=== PATIENT | female | born 1940 | race Caucasian/White ===

== ENCOUNTER 2022-07-23 15:09 | Emergency (ER) | payer MEDICARE ==
[2022-07-23] MEDS ORDERED: TORAdol 30 mg Injection IM ONE (15:24)
[2022-07-23] MEDS ORDERED: TORAdol 30 mg Injection ONE (15:30)
[2022-07-23 15:31] VITALS: O2SAT 98
--- NOTE | 2022-07-23 15:36 | ERPHSYRPT ---
- History of Present Illness Time Seen by Provider: 07/23/22 15:32 Source: patient, family Exam Limitations: no limitations Patient Subjective Stated Complaint: Pt went to answer the door and when she stood up her right leg gave out and she fell and injured her left pelvis, left shoulder, and cut her left eye on the lateral side Triage Nursing Assessment: Pt brought to the ER by her son, magy wnl, rates pain as 10/10, no bruising noted to left shoulder or pelvis, tender to touch, bruising to left eye with mild bleeding to the lateral side, bounding pulses, skin n/w/d, son states that after she fell he picked her up and she passed out in her arms, pt appears to be in extreme pain Physician History: Pt went to answer the door and when she stood up her right leg gave out and she fell and injured her left pelvis, left shoulder, and cut her left eye on the lateral side son states that after she fell he picked her up and she passed out in her arms, pt appears to be in extreme pain Occurred: just prior to arrival Reason for Fall: tripped, fell from standing pos Injuries/Pain Location: face (tiny laceration at outer angle of left eye), upper extremity, pelvis, lower extremity Loss of Consciousness: brief (seconds) Quality: throbbing Severity of Pain-Max: moderate Severity of Pain-Current: moderate Modifying Factors: Improves With: nothing Associated Symptoms (Fall): denies symptoms Allergies/Adverse Reactions: codeine Allergy (Verified 07/23/22 15:32) propoxyphene [From Darvon] Allergy (Verified 07/23/22 15:32) Home Medications: Alendronate Sodium [Fosamax] 70 mg PO WEEKLY 07/23/22 [History] Amlodipine Besylate 5 mg [Norvasc 5 mg] 5 mg PO DAILY 07/23/22 [History] Donepezil HCl 10 mg [Aricept 10 MG] 10 mg PO HS 07/23/22 [History] Meloxicam 15 mg [Meloxicam 15 MG] 15 mg PO DAILY 07/23/22 [History] Simvastatin 40 mg PO DAILY 07/23/22 [History] hydroCHLOROthiazide [Hydrochlorothiazide] 12.5 mg PO DAILY 07/23/22 [History] Hx Influenza Vaccination/Date Given: Yes (2021) Hx Pneumococcal Vaccination/Date Given: Yes (2019) Travel Risk - International Travel Have you traveled outside of the country in past 3 weeks: No - Coronavirus Screening Are you exhibiting any of the following symptoms?: No Close contact with a COVID-19 positive Pt in past 14-21 Days: No - Vaccine Status Have you recieved a Covid-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: Yes [employer]: [employer] - Vaccination Dates Date of 2cond Vaccination (if applicable): 2020 - Review of Systems Constitutional: No Fever, No Chills Eyes: No Symptoms Ears, Nose, & Throat: No Symptoms Respiratory: No Cough, No Dyspnea Cardiac: No Chest Pain, No Edema, No Syncope Abdominal/Gastrointestinal: No Abdominal Pain, No Nausea, No Vomiting, No Diarrhea Genitourinary Symptoms: No Dysuria Musculoskeletal: Deformity (left shoulder), Fall, Injury, Joint Pain, Joint Swelling, No Back Pain, No Neck Pain, No Joint Redness Skin: No Rash Neurological: No Dizziness, No Focal Weakness, No Sensory Changes Psychological: No Symptoms Endocrine: No Symptoms All Other Systems: Reviewed and Negative - Past Medical History Pertinent Past Medical History: Yes Neurological History: No Pertinent History Cardiac History: High Cholesterol, Hypertension Respiratory History: No Pertinent History Endocrine Medical History: Diabetes Type II Musculoskeletal History: Arthritis Other Medical History: L foot fx 2020. R wrist fx 2020 - Past Surgical History Past Surgical History: Yes Gastrointestinal: Appendectomy Musculoskeletal: Orthopedic Surgery Female Surgical History: Hysterectomy Other Surgical History: back, rt wrist - Social History Smoking Status: Never smoker Exposure to second hand smoke: No Drug Use: none Patient Lives Alone: No - Nursing Vital Signs Nursing Vital Signs: Initial Vital Signs Temperature 97.1 F 07/23/22 15:17 Pulse Rate 56 L 07/23/22 15:17 Respiratory Rate 19 07/23/22 15:17 Blood Pressure 120/68 07/23/22 15:17 O2 Sat by Pulse Oximetry 98 07/23/22 15:17 Pain Scale Pain Intensity 5 - Daniela Coma Score Best Eye Response (Daniela): (4) open spontaneously Best Verbal Response (Daniela): (5) oriented Best Motor Response (Daniela): (6) obeys commands Daniela Total: 15 - Physical Exam General Appearance: no apparent distress, alert Head Injury: no evidence of injury Eye Exam: PERRL/EOMI, other (superficial laceration at outer angle of left eye) ENT Exam: airway nml Neck Exam: normal inspection, No tenderness Respiratory/Chest Exam: normal breath sounds, No chest tenderness, No respiratory distress Cardiovascular Exam: normal heart sounds, regular rate/rhythm Gastrointestinal Exam: soft, No tenderness, No distention, No guarding, No ecchymosis Back Exam: normal inspection, No vertebral tenderness Extremity Exam: normal inspection, normal range of motion, pelvis stable, No deformities Neurologic Exam: alert, oriented x 3, cooperative, sensation nml, No motor deficits Skin Exam: normal color, warm, dry SpO2: 98 Procedures - Joint Reduction Time of Procedure: 16:10 Joint Reduction Site: Left, shoulder Conscious Sedation: No Pre-Procedure Neurovascular Exam: neurovascular intact Post Procedure Neurovascular Exam: neurovascular intact Post Joint Reduction Film: joint not reduced (completely) Progress: attempted twice without any success. Splint applied. Outpatient follow up with ortho clinic in AM - Laceration/Wound Repair Left Cheek Time of Procedure: 15:35 Wound Location: Left, face Wound Length (cm): 2 Wound Explored: clean Irrigated: Yes Hibiclens Prep: Yes Wound Repaired With: Steri-strips - Course Nursing assessment & vital signs reviewed: Yes - Radiology Exams Shoulder X-ray Interpretation: Reviewed by me, Subluxation Pelvis X-ray Interpretation: Reviewed by me, Discussed w/ radiologist (left pubic bone nondisplaced fracture) Ordered Tests: Active Orders 24 hr Category Date Time Status HIPS CHARANJIT(2V) INCL PEL IF DONE Stat Exams 07/23/22 16:00 Completed SHOULDER Routine Exams 07/23/22 16:36 Completed SHOULDER Routine Exams 07/23/22 17:15 Taken SHOULDER Stat Exams 07/23/22 15:25 Completed Medication Summary Generic Name Dose Route Start Last Admin Trade Name Freq PRN Reason Stop Dose Admin Diphtheria/Tetanus/Acell Pertussis 0.5 ml 07/23/22 18:12 Tdap --Diph,Pertuss(Acell),Tet Vac/Pf 0.5 Ml Vial IM 07/23/22 18:13 .ONCE ONE Discontinued Medications Generic Name Dose Route Start Last Admin Trade Name Freq PRN Reason Stop Dose Admin Ketorolac Tromethamine 60 mg 07/23/22 15:24 07/23/22 15:32 Ketorolac Tromethamine 30 Mg/Ml Inj IM 07/23/22 15:25 60 mg STAT ONE Administration Ketorolac Tromethamine Confirm 07/23/22 15:30 Ketorolac Tromethamine 30 Mg/Ml Inj Administered 07/23/22 15:31 Dose 60 mg .ROUTE .STK-MED ONE Lorazepam 2 mg 07/23/22 16:23 07/23/22 16:31 Lorazepam 2 Mg/1 Ml 2 Mg Vial IM 07/23/22 16:24 2 mg STAT ONE Administration Lorazepam Confirm 07/23/22 16:30 Lorazepam 2 Mg/1 Ml 2 Mg Vial Administered 07/23/22 16:31 Dose 2 mg .ROUTE .STK-MED ONE Orphenadrine Citrate 60 mg 07/23/22 17:20 07/23/22 17:35 Orphenadrine Citrate 60 Mg/2 Ml Vial IM 07/23/22 17:21 60 mg STAT ONE Administration Orphenadrine Citrate Confirm 07/23/22 17:29 Orphenadrine Citrate 60 Mg/2 Ml Vial Administered 07/23/22 17:30 Dose 60 mg .ROUTE .STK-MED ONE - Progress Progress: improved, pain not gone completely Counseled pt/family regarding: diagnosis, need for follow-up, rad results - Departure Departure Disposition: Home Clinical Impression: Hip pain, left Anterior shoulder dislocation Qualifiers: Encounter type: initial encounter Laterality: left Qualified Code(s): S43.015A - Anterior dislocation of left humerus, initial encounter Pubic ramus fracture Qualifiers: Encounter type: initial encounter Fracture type: closed Laterality: left Qualified Code(s): S32.592A - Other specified fracture of left pubis, initial encounter for closed fracture Condition: Stable Critical Care Time: No Referrals: DOCTOR,NO FAMILY [NON-STAFF PHY W/O PRIVILEGES] - [facility]-Ortho M-F [id number] Instructions: Pelvic Fracture, Shoulder Dislocation (DC), Preventing Falls in Older Adults, Shoulder Instability (DC), Shoulder Pain (DC) Additional Instructions: We are unable to reduce your shoulder completely. Because of pain we are going to put you in a sling and advised you to follow-up with Ortho clinic which is our walk-in clinic tomorrow morning in between 8 AM to 10 AM. Meanwhile keep the sling on. You also have a small left side pubic bone fracture which is nondisplaced. You also have a severe osteoporosis so you are at very high fracture risk. Continue all your medication including vitamin D and calcium. Follow-up as an outpatient at Ortho clinic for your shoulder issue as well as pelvic fracture issue and consider outpatient physical therapy after discussing with them. Discharge/Care Plan CLAY JAMES was seen on 07/23/22 in the Emergency Room. The patient was counseled regarding Diagnosis,Lab results, Imaging studies, need for follow up and when to return to the Emergency Room. Prescriptions given: Discharge Note I have spoken with the patient and/or caregivers. I have explained the patient's condition, diagnosis and treatment plan based on the information available to me at this time. I have answered the patient's and/or caregiver's questions and addressed any concerns. The patient and/or caregivers have as good understanding of the patient's diagnosis, condition and treatment plan as can be expected at this point. The vital signs have been stable. The patient's condition is stable and appropriate for discharge from the emergency department. The patient will pursue further outpatient evaluation with the primary care physician or other designated or consulting physician as outlined in the discharge instructions. The patient and/or caregivers are agreeable to this plan of care and follow-up instructions have been explained in detail. The patient and/or caregivers have received these instruction. The patient/and or caregivers are aware that any significant change in condition or worsening of symptoms should prompt an immediate return to this or the closest emergency department or call 911. Prescriptions: Hydrocodone/Acetaminophen [Hydrocodone-Acetamin 5-325 mg] 1 tab PO Q6HPRN PRN #10 tablet MDD 4 PRN Reason: Pain
[2022-07-23] MEDS ORDERED: Ativan 2 MG/1 ML VIAL IM ONE (16:23)
[2022-07-23] MEDS ORDERED: Ativan 2 MG/1 ML VIAL ONE (16:30)
[2022-07-23] MEDS ORDERED: Norflex 60 MG/2 ML IM ONE (17:20)
[2022-07-23] MEDS ORDERED: Norflex 60 MG/2 ML ONE (17:29)
--- NOTE | 2022-07-23 18:10 | XRAY ---
Indication: Pain following fall. Comparison: None AP pelvis and 2 view left and right hip demonstrates nondisplaced left superior/inferior pubic ramus acute fractures. Elsewhere osteopenia, lower lumbar degenerative changes, partially visualized lower lumbar fusion hardware, and numerous pelvic phleboliths. Comment: Fracture not reported by interpreting ER clinician. Telephone report was given Dr. Schwab at 1805 hrs. on July 23, 2022.
[2022-07-23] MEDS ORDERED: Adacel Vial IM ONE ×2 (18:12→18:16)
--- NOTE | 2022-07-23 18:12 | XRAY ---
Indication: Pain following fall. Comparison: None 3 view left shoulder demonstrates anterior inferior humeral head dislocation, osteopenia, mild acromioclavicular degenerative changes, and multilevel cervical degenerative changes. No other bony, articular, or soft tissue abnormalities.
--- NOTE | 2022-07-23 18:12 | XRAY ---
Indication: Post reduction. Comparison: Taken earlier in the day. Single AP left shoulder unchanged again demonstrating anterior inferior humeral head dislocation, osteopenia, and degenerative changes.
--- NOTE | 2022-07-23 18:14 | XRAY ---
Indication: Postreduction attempt #2. Comparison: Taken earlier in day. Single AP left shoulder again demonstrates unsuccessful reduction. Continued anterior inferior humeral head dislocation, osteopenia, and degenerative changes.
[2022-07-23 18:34] VITALS: BP 140/98; PULSE 78
== END 2022-07-23 18:36 | disposition home or self-care (01) ==
LOC: ED 15:09
DX: S43.015A Anterior dislocation of left humerus, initial encounter (principal); S32.592A Other specified fracture of left pubis, initial encounter for closed fracture; M25.552 Pain in left hip; S01.112A Laceration without foreign body of left eyelid and periocular area, initial encounter; W18.39XA Other fall on same level, initial encounter; M25.512 Pain in left shoulder; E78.5 Hyperlipidemia, unspecified; I10 Essential (primary) hypertension; E11.9 Type 2 diabetes mellitus without complications; Z79.899 Other long term (current) drug therapy; Z79.891 Long term (current) use of opiate analgesic
CPT/HCPCS: 12011; 23650; 73030; 73521; 90471; 90715; 96372; 99284; J1885; J2060; J2360

== ENCOUNTER 2023-02-26 08:41 | Emergency (ER) | payer MEDICARE ==
[2023-02-26] MEDS ORDERED: Zofran 4 MG/2 ML VIAL IV ONE (08:55)
[2023-02-26] MEDS ORDERED: Sodium Chloride 0.9% 1000 ML 1,000 ML IV STA (08:55)
[2023-02-26] MEDS ORDERED: BABY ASPIRIN 81 MG CHEW PO ONE (08:55)
[2023-02-26] MEDS ORDERED: SUBLIMAZE 100 MCG/2 ML IV ONE (08:59)
[2023-02-26] MEDS ORDERED: BABY ASPIRIN 81 MG CHEW ONE (09:02)
[2023-02-26] MEDS ORDERED: Zofran 4 MG/2 ML VIAL ONE (09:04)
[2023-02-26] MEDS ORDERED: SUBLIMAZE 100 MCG/2 ML ONE (09:04)
[2023-02-26] MEDS ORDERED: Sodium Chloride 0.9% 1000 ML 1,000 ML ONE (09:04)
[2023-02-26 09:14] LABS: Absolute Neutrophil Ct (ANC) 3.69 x10^3/uL (1.4-6.9); BASOPHIL % 0.5 % (0.0-0.4); Basophil (Absolute #) 0.03 x10^3/uL (0-0.4); Eosinophil % 2.2 % (0.00-5.0); Eosinophil (Absolute #) 0.13 x10^3/uL (0-0.5); Hemoglobin 13.5 g/dL (12.0-16.0); IMMATURE GRAN # 0.03 x10^3u/L (0.00-0.03); IMMATURE GRAN % 0.5 % (0.00-0.4); Lymphocyte (Absolute #) 1.67 x10^3/uL (1.0-4.6); Lymphocytes % 27.8 % (24.0-44.0); Mean Cell Volume 92.9 fL (78-100); Mean Corpuscular Hemoglobin 29.2 pg (26-32); Mean Corpuscular Hgb Concent. 31.4 g/dL (32-36); Mean Platelet Volume 10.9 fL (7.5-11.0); Monocyte (Absolute #) 0.46 x10^3/uL (0.0-1.3); Monocytes % 7.7 % (0.0-12.0); Neutrophil % 61.3 % (36.0-66.0); Platelet Count 226 x10^3/uL (150-450); Red Blood Count 4.63 x10^6/uL (4.1-5.4); Red Cell Distribution Width 14.2 % (11.5-14.0)
[2023-02-26 09:29] LABS: ALBUMIN 4.3 g/dL (3.5-5.0); ANION GAP 15.9 MEQ/L (5-15); BILIRUBIN,TOTAL 0.6 mg/dL (0.2-1.3); Creatinine 1 0.96 mg/dL (0.52-1.04); EST GLOMERULAR FILTRATION RATE 59.4 ML/MIN; Potassium 4.1 mmol/L (3.5-5.1); Total Protein 7.5 g/dL (6.3-8.2)
[2023-02-26 09:38] LABS: INR 0.93 (0.8-3.0); PROTIME 10.2 SECONDS (9.4-12.5); PTT 25.9 SECONDS (25.1-36.5)
[2023-02-26 09:40] LABS: D-DIMER QUANTITATIVE 0.67 mg/L (0.0-0.50)
--- NOTE | 2023-02-26 10:25 | ERPHSYRPT ---
- History of Present Illness Time Seen by Provider: 02/26/23 08:50 Historian: patient Exam Limitations: no limitations Patient Subjective Stated Complaint: C/O CHEST PAIN THAT STARTED AROUND 0700 THIS AM WHILE IN THE SHOWER. STATES PAIN RADIATED THROUGH TO BACK, INBETWEEN HER SHOULDER BLADES. HURTS TO DEEP BREATH. Triage Nursing Assessment: Patient brought back to ER in W/C. She is alert and oriented; anxious. SOB noted; patient states it hurts to deep breath. Patient displaying s/s of pain when attempting to take a deep breath. She is garcía; face is flushed. Skin in not hot to touch. Trace edema to BLE. No cough present. Physician History: Patient is an 82-year-old white female who presents with a complaint of chest pain which radiates through to the back into the interscapular area this started at 7 AM this morning it is worse with a deep breath and certain movements. She has been short of breath the pain is worse with movement or deep breath but is continuous. She was taking a shower when the pain started. Timing/Duration: today Activities at Onset: other (Taking a shower.) Quality: stabbing Location: substernal Chest Pain Radiation: back Severity of Pain-Max: severe Severity of Pain-Current: severe Modifying Factors: Improves With: breathing, coughing, movement Associated Symptoms: shortness of breath, hurts to breathe, back pain Prior Chest Pain/Cardiac Workup: no prior chest pain Nitro Today/Relief: no nitro taken today Aspirin Treatment Today: no aspirin today Allergies/Adverse Reactions: codeine Allergy (Verified 02/26/23 08:46) propoxyphene [From Darvon] Allergy (Verified 02/26/23 08:46) Home Medications: Alendronate Sodium [Fosamax] 70 mg PO WEEKLY 07/23/22 [History] Amlodipine Besylate 5 mg [Norvasc 5 mg] 5 mg PO DAILY 07/23/22 [History] Donepezil HCl 10 mg [Aricept 10 MG] 10 mg PO HS 07/23/22 [History] Meloxicam 15 mg [Meloxicam 15 MG] 15 mg PO DAILY 07/23/22 [History] Simvastatin 40 mg PO DAILY 07/23/22 [History] hydroCHLOROthiazide [Hydrochlorothiazide] 12.5 mg PO DAILY 07/23/22 [History] Glimepiride 4 mg [Amaryl 4 mg] 4 mg PO DAILY 02/26/23 [History] Hx Tetanus, Diphtheria Vaccination/Date Given: Yes Hx Influenza Vaccination/Date Given: Yes (2021) Hx Pneumococcal Vaccination/Date Given: Yes (2019) Immunizations Up to Date: Yes Travel Risk - International Travel Have you traveled outside of the country in past 3 weeks: No - Coronavirus Screening Are you exhibiting any of the following symptoms?: Yes Symptoms: Shortness of Breath Close contact with a COVID-19 positive Pt in past 14-21 Days: No - Vaccine Status Have you recieved a Covid-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: 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[employer] - Vaccination Dates Date of 2cond Vaccination (if applicable): 2020 - Review of Systems Constitutional: No Fever, No Chills Eyes: No Symptoms Ears, Nose, & Throat: No Symptoms Respiratory: Dyspnea, Dyspnea on Exertion (BUCK), No Cough Cardiac: Chest Pain, No Edema, No Syncope Abdominal/Gastrointestinal: No Symptoms, No Abdominal Pain, No Nausea, No Vomiting, No Diarrhea Genitourinary Symptoms: No Symptoms, No Dysuria Musculoskeletal: No Symptoms, No Back Pain, No Neck Pain Skin: No Rash Neurological: No Symptoms, No Dizziness, No Focal Weakness, No Sensory Changes Psychological: No Symptoms Endocrine: No Symptoms All Other Systems: Reviewed and Negative - Past Medical History Pertinent Past Medical History: Yes Neurological History: No Pertinent History Cardiac History: High Cholesterol, Hypertension Respiratory History: No Pertinent History Endocrine Medical History: Diabetes Type II Musculoskeletal History: Osteoarthritis 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 - Past Surgical History Past Surgical History: Yes Gastrointestinal: Appendectomy Musculoskeletal: Orthopedic Surgery Female Surgical History: Hysterectomy Other Surgical History: back, rt wrist - Social History Smoking Status: Never smoker Exposure to second hand smoke: No Drug Use: none Patient Lives Alone: No - Nursing Vital Signs Nursing Vital Signs: Initial Vital Signs Pulse Rate 63 02/26/23 08:45 Respiratory Rate 12 02/26/23 08:45 Blood Pressure 143/74 02/26/23 08:45 O2 Sat by Pulse Oximetry 99 02/26/23 08:45 Pain Scale Pain Intensity 0 - Physical Exam General Appearance: moderate distress, alert Eye Exam: PERRL/EOMI, eyes nml inspection Ears, Nose, Throat Exam: normal ENT inspection, moist mucous membranes Neck Exam: normal inspection, non-tender, supple, full range of motion Respiratory Exam: normal breath sounds, lungs clear, No respiratory distress Cardiovascular Exam: regular rate/rhythm, normal heart sounds Gastrointestinal/Abdomen Exam: soft, No tenderness, No mass Back Exam: normal inspection, No CVA tenderness, No vertebral tenderness Extremity Exam: normal inspection, normal range of motion Neurologic Exam: alert, oriented x 3, cooperative, normal mood/affect, sensation nml, No motor deficits Skin Exam: normal color, warm, dry SpO2: 98 - Course Nursing assessment & vital signs reviewed: Yes EKG Interpreted by Me: RATE (66), Sinus Rhythm, NORMAL AXIS, Right Bundle Branch Block, Non-specific ST Changes, Other (Low voltage in the precordial leads and occasional atrial premature complex.) - CT Exams Chest CT Interpretation: Tele-radiologist Report Ordered Tests: Active Orders 24 hr Category Date Time Status EKG-ER Only STAT Care 02/26/23 08:55 Active IV Insertion STAT Care 02/26/23 08:55 Active CHEST WITH CONTRAST [CT] Stat Exams 02/26/23 08:56 Completed CBC W DIFF Stat Lab 02/26/23 08:55 Completed CMP Stat Lab 02/26/23 08:58 Completed D-DIMER QUANTITATIVE Stat Lab 02/26/23 08:58 Completed NT PRO BNPII Stat Lab 02/26/23 08:58 Completed PROTIME WITH INR Stat Lab 02/26/23 08:58 Completed PTT Stat Lab 02/26/23 08:58 Completed TROPONIN Q4H Lab 02/26/23 08:58 Completed TROPONIN Q4H Lab 02/26/23 11:53 Completed TROPONIN Q4H Lab 02/26/23 17:00 Ordered UA W/RFX UR CULTURE Stat Lab 02/26/23 11:07 Completed Urine Triage Profile Stat Lab 02/26/23 11:07 Completed Medication Summary Discontinued Medications Generic Name Dose Route Start Last Admin Trade Name Freq PRN Reason Stop Dose Admin Aspirin 324 mg 02/26/23 08:55 02/26/23 09:03 Aspirin 81 Mg Tab.Chew PO 02/26/23 08:56 324 mg STAT ONE Administration Aspirin Confirm 02/26/23 09:02 Aspirin 81 Mg Tab.Chew Administered 02/26/23 09:03 Dose 324 mg .ROUTE .STK-MED ONE Fentanyl Citrate 100 mcg 02/26/23 08:59 02/26/23 09:05 Fentanyl Citrate 100 Mcg/2 Ml* Vial IV 02/26/23 09:00 100 mcg STAT ONE Administration Fentanyl Citrate Confirm 02/26/23 09:04 Fentanyl Citrate 100 Mcg/2 Ml* Vial Administered 02/26/23 09:05 Dose 100 mcg .ROUTE .STK-MED ONE Sodium Chloride 1,000 mls @ 999 mls/hr 02/26/23 08:55 02/26/23 10:15 Sodium Chloride 0.9% 1000 Ml IV 02/26/23 09:55 Infused .Q1H1M STA Infusion Sodium Chloride Confirm 02/26/23 09:04 Sodium Chloride 0.9% 1000 Ml Administered 02/26/23 09:05 Dose 1,000 mls @ ud .ROUTE .STK-MED ONE Ondansetron HCl 4 mg 02/26/23 08:55 02/26/23 09:05 Ondansetron Hcl 4 Mg/2 Ml Vial IV 02/26/23 08:56 4 mg STAT ONE Administration Ondansetron HCl Confirm 02/26/23 09:04 Ondansetron Hcl 4 Mg/2 Ml Vial Administered 02/26/23 09:05 Dose 4 mg .ROUTE .STK-MED ONE Lab/Rad Data: Laboratory Result Diagrams 02/26/23 08:55 02/26/23 08:58 Laboratory Results 02/26/23 02/26/23 02/26/23 Range/Units 11:53 11:07 11:07 WBC (4.0-10.5) x10^3/uL RBC (4.1-5.4) x10^6/uL Hgb (12.0-16.0) g/dL Hct (35-47) % MCV (78-100) fL MCH (26-32) pg MCHC (32-36) g/dL RDW (11.5-14.0) % Plt Count (150-450) x10^3/uL MPV (7.5-11.0) fL Gran % (36.0-66.0) % Immature Gran % (Auto) (0.00-0.4) % Nucleat RBC Rel Count (0.00-0.1) % Eos # (Auto) (0-0.5) x10^3/uL Immature Gran # (Auto) (0.00-0.03) x10^3u/L Absolute Lymphs (auto) (1.0-4.6) x10^3/uL Absolute Monos (auto) (0.0-1.3) x10^3/uL Absolute Nucleated RBC (0.00-0.01) x10^3u/L Lymphocytes % (24.0-44.0) % Monocytes % (0.0-12.0) % Eosinophils % (0.00-5.0) % Basophils % (0.0-0.4) % Absolute Granulocytes (1.4-6.9) x10^3/uL Basophils # (0-0.4) x10^3/uL PT (9.4-12.5) SECONDS INR (0.8-3.0) APTT (25.1-36.5) SECONDS D-Dimer (0.0-0.50) mg/L Sodium (137-145) mmol/L Potassium (3.5-5.1) mmol/L Chloride (98-107) mmol/L Carbon Dioxide (22-30) mmol/L Anion Gap (5-15) MEQ/L BUN (7-17) mg/dL Creatinine (0.52-1.04) mg/dL Estimated GFR ML/MIN Glucose (74-106) mg/dL Calcium (8.4-10.2) mg/dL Total Bilirubin (0.2-1.3) mg/dL AST (14-36) U/L ALT (0-35) U/L Alkaline Phosphatase (38-126) U/L Troponin I < 0.012 (0.000-0.034) ng/mL NT-Pro-B Natriuret Pep (<300) pg/mL Serum Total Protein (6.3-8.2) g/dL Albumin (3.5-5.0) g/dL Urine Color Yellow (Yellow) Urine Appearance Clear (Clear) Urine pH 7.5 (4.6-8.0) Ur Specific Aguilar 1.010 (1.005-1.030) Urine Protein Negative (Negative) Urine Glucose (UA) Negative (Negative) mg/dL Urine Ketones Negative (Negative) Urine Blood Negative (Negative) Urine Nitrite Negative (Negative) Urine Bilirubin Negative (Negative) Urine Urobilinogen 0.2 (0.2) mg/dL Ur Leukocyte Esterase Negative (Negative) U Hyaline Cast (Auto) NONE SEEN (0-2) /LPF Urine Microscopic RBC 0-2 (0-5) /HPF Urine Microscopic WBC 0-2 (0-5) /HPF Ur Epithelial Cells None Seen (None Seen) /HPF Urine Bacteria None Seen (None Seen) /HPF Urine Culture Reflexed NO (NO) Urine Opiates Level NEGATIVE (NEGATIVE) Ur Methadone NEGATIVE (NEGATIVE) Urine Barbiturates NEGATIVE (NEGATIVE) Ur Phencyclidine (PCP) NEGATIVE (NEGATIVE) Urine Amphetamine NEGATIVE (NEGATIVE) U Benzodiazepine Level NEGATIVE (NEGATIVE) Urine Cocaine NEGATIVE (NEGATIVE) Urine Marijuana (THC) NEGATIVE (NEGATIVE) 02/26/23 02/26/23 02/26/23 Range/Units 08:58 08:58 08:58 WBC (4.0-10.5) x10^3/uL RBC (4.1-5.4) x10^6/uL Hgb (12.0-16.0) g/dL Hct (35-47) % MCV (78-100) fL MCH (26-32) pg MCHC (32-36) g/dL RDW (11.5-14.0) % Plt Count (150-450) x10^3/uL MPV (7.5-11.0) fL Gran % (36.0-66.0) % Immature Gran % (Auto) (0.00-0.4) % Nucleat RBC Rel Count (0.00-0.1) % Eos # (Auto) (0-0.5) x10^3/uL Immature Gran # (Auto) (0.00-0.03) x10^3u/L Absolute Lymphs (auto) (1.0-4.6) x10^3/uL Absolute Monos (auto) (0.0-1.3) x10^3/uL Absolute Nucleated RBC (0.00-0.01) x10^3u/L Lymphocytes % (24.0-44.0) % Monocytes % (0.0-12.0) % Eosinophils % (0.00-5.0) % Basophils % (0.0-0.4) % Absolute Granulocytes (1.4-6.9) x10^3/uL Basophils # (0-0.4) x10^3/uL PT 10.2 (9.4-12.5) SECONDS INR 0.93 (0.8-3.0) APTT 25.9 (25.1-36.5) SECONDS D-Dimer 0.67 H* (0.0-0.50) mg/L Sodium (137-145) mmol/L Potassium (3.5-5.1) mmol/L Chloride (98-107) mmol/L Carbon Dioxide (22-30) mmol/L Anion Gap (5-15) MEQ/L BUN (7-17) mg/dL Creatinine (0.52-1.04) mg/dL Estimated GFR ML/MIN Glucose (74-106) mg/dL Calcium (8.4-10.2) mg/dL Total Bilirubin (0.2-1.3) mg/dL AST (14-36) U/L ALT (0-35) U/L Alkaline Phosphatase (38-126) U/L Troponin I < 0.012 (0.000-0.034) ng/mL NT-Pro-B Natriuret Pep 635 (<300) pg/mL Serum Total Protein (6.3-8.2) g/dL Albumin (3.5-5.0) g/dL Urine Color (Yellow) Urine Appearance (Clear) Urine pH (4.6-8.0) Ur Specific Aguilar (1.005-1.030) Urine Protein (Negative) Urine Glucose (UA) (Negative) mg/dL Urine Ketones (Negative) Urine Blood (Negative) Urine Nitrite (Negative) Urine Bilirubin (Negative) Urine Urobilinogen (0.2) mg/dL Ur Leukocyte Esterase (Negative) U Hyaline Cast (Auto) (0-2) /LPF Urine Microscopic RBC (0-5) /HPF Urine Microscopic WBC (0-5) /HPF Ur Epithelial Cells (None Seen) /HPF Urine Bacteria (None Seen) /HPF Urine Culture Reflexed (NO) Urine Opiates Level (NEGATIVE) Ur Methadone (NEGATIVE) Urine Barbiturates (NEGATIVE) Ur Phencyclidine (PCP) (NEGATIVE) Urine Amphetamine (NEGATIVE) U Benzodiazepine Level (NEGATIVE) Urine Cocaine (NEGATIVE) Urine Marijuana (THC) (NEGATIVE) 06/19/23 06/19/23 Range/Units 08:58 08:55 WBC 6.0 (4.0-10.5) x10^3/uL RBC 4.63 (4.1-5.4) x10^6/uL Hgb 13.5 (12.0-16.0) g/dL Hct 43.0 (35-47) % MCV 92.9 (78-100) fL MCH 29.2 (26-32) pg MCHC 31.4 L (32-36) g/dL RDW 14.2 H (11.5-14.0) % Plt Count 226 (150-450) x10^3/uL MPV 10.9 (7.5-11.0) fL Gran % 61.3 (36.0-66.0) % Immature Gran % (Auto) 0.5 H (0.00-0.4) % Nucleat RBC Rel Count 0.0 (0.00-0.1) % Eos # (Auto) 0.13 (0-0.5) x10^3/uL Immature Gran # (Auto) 0.03 (0.00-0.03) x10^3u/L Absolute Lymphs (auto) 1.67 (1.0-4.6) x10^3/uL Absolute Monos (auto) 0.46 (0.0-1.3) x10^3/uL Absolute Nucleated RBC 0.00 (0.00-0.01) x10^3u/L Lymphocytes % 27.8 (24.0-44.0) % Monocytes % 7.7 (0.0-12.0) % Eosinophils % 2.2 (0.00-5.0) % Basophils % 0.5 (0.0-0.4) % Absolute Granulocytes 3.69 (1.4-6.9) x10^3/uL Basophils # 0.03 (0-0.4) x10^3/uL PT (9.4-12.5) SECONDS INR (0.8-3.0) APTT (25.1-36.5) SECONDS D-Dimer (0.0-0.50) mg/L Sodium 138 (137-145) mmol/L Potassium 4.1 (3.5-5.1) mmol/L Chloride 98 (98-107) mmol/L Carbon Dioxide 28 (22-30) mmol/L Anion Gap 15.9 H (5-15) MEQ/L BUN 25 H (7-17) mg/dL Creatinine 0.96 (0.52-1.04) mg/dL Estimated GFR 59.4 ML/MIN Glucose 224 H (74-106) mg/dL Calcium 9.0 (8.4-10.2) mg/dL Total Bilirubin 0.60 (0.2-1.3) mg/dL AST 30 (14-36) U/L ALT 30 (0-35) U/L Alkaline Phosphatase 111 (38-126) U/L Troponin I (0.000-0.034) ng/mL NT-Pro-B Natriuret Pep (<300) pg/mL Serum Total Protein 7.5 (6.3-8.2) g/dL Albumin 4.3 (3.5-5.0) g/dL Urine Color (Yellow) Urine Appearance (Clear) Urine pH (4.6-8.0) Ur Specific [place] (1.005-1.030) Urine Protein (Negative) Urine Glucose (UA) (Negative) mg/dL Urine Ketones (Negative) Urine Blood (Negative) Urine Nitrite (Negative) Urine Bilirubin (Negative) Urine Urobilinogen (0.2) mg/dL Ur Leukocyte Esterase (Negative) U Hyaline Cast (Auto) (0-2) /LPF Urine Microscopic RBC (0-5) /HPF Urine Microscopic WBC (0-5) /HPF Ur Epithelial Cells (None Seen) /HPF Urine Bacteria (None Seen) /HPF Urine Culture Reflexed (NO) Urine Opiates Level (NEGATIVE) Ur Methadone (NEGATIVE) Urine Barbiturates (NEGATIVE) Ur Phencyclidine (PCP) (NEGATIVE) Urine Amphetamine (NEGATIVE) U Benzodiazepine Level (NEGATIVE) Urine Cocaine (NEGATIVE) Urine Marijuana (THC) (NEGATIVE) - Progress Progress: improved Air Movement: good Blood Culture(s) Obtained: No Antibiotics given: No Counseled pt/family regarding: lab results, diagnosis, rad results Medical Desision Making - Independent Historian Additional History obtained from: Spouse - Diagnostic Testing Diagnostic test were ordered, analyzed, and reviewed by me: Yes Radiological Interpretation: Reviewed by me - Risk of complications The pt has a mod risk of morbidity or mortality based on: Need for prescription drug management - Departure Departure Disposition: Home Clinical Impression: Thoracic back pain Condition: Stable Critical Care Time: No Referrals: LAW MCKEON MD [Primary Care Provider] - Follow up/PCP as directed Instructions: Upper Back Pain ED, Upper Back Pain (DC) Prescriptions: Oxycodone HCl/Acetaminophen [Percocet 5-325 mg Tablet] 1 each PO Q6H 3 Days #12 tablet MDD 4 Diclofenac Sodium 50 mg [Voltaren 50 mg] 50 mg PO TID 5 Days #15 tablet MDD 3
--- NOTE | 2023-02-26 11:01 | XRAY ---
Indication: Chest pain. Elevated d-dimer. Multiple contiguous axial images obtained through the chest using 80 cc Isovue 370 contrast and PE protocol. Comparison: None Good opacification of the pulmonary arteries to include the lobar and segmental branches. No pulmonary embolus. Heart not enlarged. Aorta mildly arteriosclerotic without aneurysm/dissection. A few tiny left superhilar calcified nodes. No pathologic mediastinal/hilar lymphadenopathy. Small hiatal hernia. Lungs demonstrates bilateral dependent atelectasis greatest near the lung bases. No suspicious pulmonary mass/nodule, infiltrate, effusion, or pneumothorax. Bony thorax intact with osteopenia, mild degenerative changes throughout the spine, small superior L1 Schmorl node, and incompletely visualized lumbar fusion hardware. Limited upper abdomen demonstrates 1.4 cm left upper pole exophytic renal cyst, and tiny splenic calcified granulomas. Impression: 1. Negative pulmonary embolus. No acute cardiopulmonary abnormalities. 2. Incidental subsegmental atelectasis, small hiatal hernia, arteriosclerotic disease, chronic bony findings, left renal cyst, and old granulomatous disease.
[2023-02-26 11:30] LABS: Appearance Clear (Clear); Bacteria None Seen /HPF (None Seen); Bilirubin Negative (Negative); Blood Negative (Negative); Epithelial Cells None Seen /HPF (None Seen); Glucose, Urine Negative (Negative); Hyaline Casts NONE SEEN /LPF (0-2); Ketones Negative (Negative); Leukocyte Esterase Negative (Negative); Nitrite Negative (Negative); Ph 7.5 (4.6-8.0); Protein,Urine Dip Negative (Negative); RBC 0-2 /HPF (0-5); Urobilinogen 0.2 mg/dL (0.2); WBC 0-2 /HPF (0-5)
[2023-02-26 11:42] LABS: ADD URINE CULTURE? NO (NO)
[2023-02-26 11:44] LABS: Amphetamine,Urine NEGATIVE (NEGATIVE); Barbiturate,Urine NEGATIVE (NEGATIVE); Benzodiazepine,Urine NEGATIVE (NEGATIVE); Cocaine,Urine NEGATIVE (NEGATIVE); Methadone,Urine NEGATIVE (NEGATIVE); Opiate,Urine NEGATIVE (NEGATIVE); PCP,Urine NEGATIVE (NEGATIVE); THC,Urine NEGATIVE (NEGATIVE)
[2023-02-26 12:32] VITALS: BP 119/63; PULSE 52
[2023-02-26 12:35] VITALS: O2SAT 98
== END 2023-02-26 13:02 | disposition home or self-care (01) ==
LOC: ED 08:41
DX: M54.6 Pain in thoracic spine (principal); R07.9 Chest pain, unspecified; R06.02 Shortness of breath; E78.5 Hyperlipidemia, unspecified; I10 Essential (primary) hypertension; E11.9 Type 2 diabetes mellitus without complications; Z79.84 Long term (current) use of oral hypoglycemic drugs; Z79.891 Long term (current) use of opiate analgesic; Z79.899 Other long term (current) drug therapy
CPT/HCPCS: 36000; 36415; 71260; 80053; 80307; 81001; 83880; 84484; 85025; 85379; 85610; 85730; 93005; 96374; 96375; 99284; J2405; J3010; A9270-GY

== ENCOUNTER 2023-02-28 08:27 | Emergency (ER) | payer MEDICARE ==
[2023-02-28 09:04] VITALS: BP 149/72; PULSE 58; O2SAT 94
--- NOTE | 2023-02-28 10:07 | XRAY ---
Indication: Left facial injury following fall. Multiple contiguous axial images obtained through the head without contrast. Comparison: None Age-appropriate global atrophy, mild periventricular degenerative micro-ischemia bilaterally, and 1 cm remote infarct left basal ganglia. No acute intracranial hemorrhage, abnormal extra-axial fluid collection, or mass effect. Fourth ventricle is midline without hydrocephalus. Bony calvarium intact. Visualized paranasal sinuses and mastoid air cells are clear. 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
--- NOTE | 2023-02-28 10:08 | XRAY ---
Indication: Left facial injury following fall. Multiple contiguous axial images obtained through the facial bones. Sagittal and coronal reformatted images obtained. Comparison: None A few bilateral dental amalgams produces beam artifact. Mild left facial soft tissue swelling with 1.0 x 1.6 cm hematoma. No acute fracture or suspicious bony lesions. Orbits including roof, garza, and floors intact. Visualized paranasal sinuses and nasal passages are clear. Minimal nasal septal deviation to the right. Mild right TMJ degenerative changes. Minimal/mild C3-C6 degenerative changes. Right jaw demonstrates a 6 x 10 mm well circumscribed benign appearing subcutaneous calcification of uncertain etiology. Remaining visualized noncontrasted soft tissues unremarkable. Impression: Left facial soft tissue swelling/hematoma, C3-C6 degenerative changes, right TMJ degenerative changes, minimal nasal septal deviation, and benign appearing right jaw soft tissue calcification. CT facial bones negative
--- NOTE | 2023-02-28 10:14 | ERPHSYRPT ---
- History of Present Illness Time Seen by Provider: 02/28/23 08:29 Source: patient Exam Limitations: no limitations Patient Subjective Stated Complaint: Fall Triage Nursing Assessment: Patient ambulated back to ED and transferred self to bed. Patient A+O X 3. Patient's skin pink, warm and dry. Patient states she was on hospital campus and tripped over a parking curb landing on the left side of her face and alecia hands. Patient complains of left sided facial pain 2/10. Left side of face noted to be swollen and bruised. Patient has small abrasions noted to alecia palm of hands. Physician History: Patient is here left-sided facial pain. Just prior to arrival patient had a mechanical fall in the parking lot. She hit her left face. Has abrasions over both wrists. Patient states that she is not on any blood thinners. States that it was a mechanical fall. Patient having left-sided facial bruising and swelling. No vision changes. Allergies/Adverse Reactions: codeine Allergy (Verified 02/28/23 08:59) propoxyphene [From Darvon] Allergy (Verified 02/28/23 08:59) Home Medications: Alendronate Sodium [Fosamax] 70 mg PO WEEKLY 07/23/22 [History] Amlodipine Besylate 5 mg [Norvasc 5 mg] 5 mg PO DAILY 07/23/22 [History] Donepezil HCl 10 mg [Aricept 10 MG] 10 mg PO HS 07/23/22 [History] Meloxicam 15 mg [Meloxicam 15 MG] 15 mg PO DAILY 07/23/22 [History] Simvastatin 40 mg PO DAILY 07/23/22 [History] hydroCHLOROthiazide [Hydrochlorothiazide] 12.5 mg PO DAILY 07/23/22 [History] Glimepiride 4 mg [Amaryl 4 mg] 4 mg PO DAILY 02/26/23 [History] Hx Tetanus, Diphtheria Vaccination/Date Given: Yes Hx Influenza Vaccination/Date Given: Yes (2021) Hx Pneumococcal Vaccination/Date Given: Yes (2019) Immunizations Up to Date: Yes Travel Risk - International Travel Have you traveled outside of the country in past 3 weeks: No - Coronavirus Screening Are you exhibiting any of the following symptoms?: No Close contact with a COVID-19 positive Pt in past 14-21 Days: No - Vaccine Status Have you recieved a Covid-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: 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[employer] - Vaccination Dates Date of 2cond Vaccination (if applicable): 2020 - Review of Systems Constitutional: Other (Left-sided facial trauma), No Fever, No Chills Eyes: No Symptoms Ears, Nose, & Throat: No Symptoms Respiratory: No Cough, No Dyspnea Cardiac: No Chest Pain, No Edema, No Syncope Abdominal/Gastrointestinal: No Abdominal Pain, No Nausea, No Vomiting, No Diarrhea Genitourinary Symptoms: No Dysuria Musculoskeletal: No Back Pain, No Neck Pain Skin: No Rash Neurological: No Dizziness, No Focal Weakness, No Sensory Changes Psychological: No Symptoms Endocrine: No Symptoms All Other Systems: Reviewed and Negative - Past Medical History Pertinent Past Medical History: Yes Neurological History: No Pertinent History Cardiac History: High Cholesterol, Hypertension Respiratory History: No Pertinent History Endocrine Medical History: Diabetes Type II Musculoskeletal History: Osteoarthritis 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 - Past Surgical History Past Surgical History: Yes Gastrointestinal: Appendectomy Musculoskeletal: Orthopedic Surgery Female Surgical History: Hysterectomy Other Surgical History: back, rt wrist - Social History Smoking Status: Never smoker Exposure to second hand smoke: No Drug Use: none Patient Lives Alone: No - Nursing Vital Signs Nursing Vital Signs: Initial Vital Signs Temperature 96.9 F 02/28/23 09:00 Pulse Rate 58 L 02/28/23 09:00 Respiratory Rate 18 02/28/23 09:00 Blood Pressure 149/72 02/28/23 09:00 O2 Sat by Pulse Oximetry 94 L 02/28/23 09:00 Pain Scale Pain Intensity 2 - Physical Exam General Appearance: no apparent distress, alert Eye Exam: PERRL/EOMI, eyes nml inspection Ears, Nose, Throat Exam: normal ENT inspection, TMs normal, pharynx normal, moist mucous membranes, other (Minimal left-sided facial swelling. No loose teeth on the inside of the mouth. Smile equal. Extraocular movements intact.) Neck Exam: normal inspection, non-tender, supple, full range of motion, other (No C-spine tenderness no step-offs no deformities C-spine cleared using Nexus criteria) Respiratory Exam: normal breath sounds, lungs clear, No respiratory distress Cardiovascular Exam: regular rate/rhythm, normal heart sounds, normal peripheral pulses Gastrointestinal/Abdomen Exam: soft, normal bowel sounds, No tenderness, No mass Back Exam: normal inspection, normal range of motion, No CVA tenderness, No vertebral tenderness Extremity Exam: normal inspection, normal range of motion, pelvis stable, other (Lateral hand abrasions without foreign body) Neurologic Exam: alert, oriented x 3, cooperative, normal mood/affect, nml cerebellar function, nml station & gait, sensation nml, No motor deficits Skin Exam: normal color, warm, dry, No rash Lymphatic Exam: No adenopathy SpO2: 94 - Course Nursing assessment & vital signs reviewed: Yes Ordered Tests: Active Orders 24 hr Category Date Time Status FACIAL BONES WO CONTRAST [CT] Stat Exams 02/28/23 09:16 Completed HEAD WITHOUT CONTRAST [CT] Stat Exams 02/28/23 09:16 Completed - Progress Progress: improved Progress Note: 02/28/23 10:27 Patient is not on any blood thinners. Will obtain a CT max face, CT head. Patient does have some abrasions over her palms. However no wrist pain. Specifically no scaphoid tenderness. No signs of scaphoid fracture. CT scans returned negative for fracture or other injury. Patient most likely does have a concussion. I had my typical concussion conversation with the patient and the . They will follow-up for reexam with PCP tomorrow. May return here anytime sooner for new or changing symptoms Counseled pt/family regarding: diagnosis, need for follow-up, rad results Medical Desision Making - Independent Historian Additional History obtained from: Spouse - Diagnostic Testing Radiological Interpretation: Reviewed by me - Risk of complications Minimal Risk: Minimal risk of morbidity - Departure Departure Disposition: Home Clinical Impression: Fall, Facial swelling, Concussion, Hand abrasion Condition: Stable Critical Care Time: No Referrals: LAW MCKEON MD [Primary Care Provider] - Follow up/PCP as directed Instructions: Contusion (DC)
== END 2023-02-28 10:32 | disposition home or self-care (01) ==
LOC: ED 08:27
DX: S06.0X0A Concussion without loss of consciousness, initial encounter (principal); S60.512A Abrasion of left hand, initial encounter; S60.511A Abrasion of right hand, initial encounter; W01.0XXA Fall on same level from slipping, tripping and stumbling without subsequent striking against object, initial encounter; Y92.481 Parking lot as the place of occurrence of the external cause; R22.0 Localized swelling, mass and lump, head; R51.9 Headache, unspecified; E78.5 Hyperlipidemia, unspecified; I10 Essential (primary) hypertension; E11.9 Type 2 diabetes mellitus without complications; Z79.84 Long term (current) use of oral hypoglycemic drugs; Z79.899 Other long term (current) drug therapy
CPT/HCPCS: 70450; 70486; 99283

== ENCOUNTER 2023-06-20 08:46 | Day surgery (SDC) | payer MEDICARE ==
[2023-06-20] MEDS ORDERED: Depo-Medrol 40 MG/ML IM ONE (08:47)
[2023-06-20] MEDS ORDERED: Sodium Chloride 0.9(Preservative Free) 10 ML IJ ONE (08:47)
[2023-06-20] MEDS ORDERED: Xylocaine-Mpf 2% 5 Ml Vial ONE (10:14)
[2023-06-20] MEDS ORDERED: DIPRIVAN 200 MG/20 ML IV ONE (10:14)
[2023-06-20] MEDS ORDERED: Lactated Ringers 1,000 ML IV ONE (11:44)
--- NOTE | 2023-06-20 12:27 | XRAY ---
Indication: Right L4-S1 transforaminal TRISTAN. Intraoperative fluoroscopy provided 1 minute 29 seconds. 6 digital spot image submitted for interpretation demonstrate posterior needle tips projecting over the expected right L4 and L5 nerve roots. Small amount of contrast injected for needle placement. Correlate with intraoperative findings/report. Incidental incompletely visualized mid lumbar fusion hardware.
--- NOTE | 2023-06-20 12:41 | XRAY ---
1 minute 29 seconds of fluoroscopy was used in surgery for a right L4-S1 transforaminal TRISTAN.
== END 2023-06-20 10:55 | disposition home or self-care (01) ==
LOC: SDC-PAIN 08:46
PROVIDERS: ATTEND Psychiatry & Neurology Pain Medicine
DX: M54.16 Radiculopathy, lumbar region (principal); E11.9 Type 2 diabetes mellitus without complications; Z79.899 Other long term (current) drug therapy
CPT/HCPCS: 64483; 64484; 72100; 77003; 82947; J1030; J2704; Q9966

== ENCOUNTER 2023-08-08 06:36 | Day surgery (SDC) | payer MEDICARE ==
[2023-08-08] MEDS ORDERED: Decadron 4 MG INJ IV ONE (06:37)
[2023-08-08] MEDS ORDERED: Sodium Chloride 0.9(Preservative Free) 10 ML IJ ONE (06:37)
[2023-08-08] MEDS ORDERED: DIPRIVAN 200 MG/20 ML IV ONE (08:20)
[2023-08-08] MEDS ORDERED: Lactated Ringers 1,000 ML IV ONE (13:41)
--- NOTE | 2023-08-08 20:59 | XRAY ---
Indication: Right L4-S1 transforaminal TRISTAN. Intraoperative fluoroscopy provided for 33 seconds. 4 digital spot image submitted for interpretation demonstrates posterior needle tip projecting over the expected right L4 and L5 nerve roots. Small amount of contrast injected for needle tip placement. Correlate with intraoperative findings/report. Incidental incompletely visualized mid lumbar fusion hardware.
--- NOTE | 2023-08-08 21:41 | XRAY ---
33 seconds of fluoroscopy was used in surgery for a right L4-S1 transforaminal TRISTAN.
== END 2023-08-08 08:58 | disposition home or self-care (01) ==
LOC: SDC-PAIN 06:36
PROVIDERS: ATTEND Psychiatry & Neurology Pain Medicine
DX: M54.16 Radiculopathy, lumbar region (principal); E11.9 Type 2 diabetes mellitus without complications
CPT/HCPCS: 64483; 64484; 72100; 77003; 82947; J1100; J2704; Q9966

== ENCOUNTER 2023-09-19 07:43 | Day surgery (SDC) | payer MEDICARE ==
[2023-09-19] MEDS ORDERED: LIDOCAINE HCL 2% 100 MG/5 ML IJ ONE (07:44)
[2023-09-19] MEDS ORDERED: DIPRIVAN 200 MG/20 ML IV ONE (09:32)
--- NOTE | 2023-09-19 10:12 | XRAY ---
Indication: Bilateral L4-S1 MBB. Intraoperative fluoroscopy provided for 17 seconds. Single digital spot image submitted for interpretation demonstrates posterior needle tips projecting over the expected left and right L4-S1 nerve roots. Correlate with intraoperative findings/report. Incidental L2-L3 fusion hardware.
--- NOTE | 2023-09-19 11:33 | XRAY ---
17 seconds of fluoroscopy was used in surgery for a bilateral L4-S1 MBB.
[2023-09-19] MEDS ORDERED: Lactated Ringers 1,000 ML IV ONE (14:05)
== END 2023-09-19 10:00 | disposition home or self-care (01) ==
LOC: SDC-PAIN 07:43
PROVIDERS: ATTEND Psychiatry & Neurology Pain Medicine
DX: M47.816 Spondylosis without myelopathy or radiculopathy, lumbar region (principal); E11.9 Type 2 diabetes mellitus without complications; Z79.899 Other long term (current) drug therapy
CPT/HCPCS: 64493; 64494; 72020; 77002; 82947; J2704

== ENCOUNTER 2023-09-26 10:20 | Observation (INO) | payer MEDICARE ==
[2023-09-26] MEDS ORDERED: solu-MEDROL 125 MG, Sterile H2O 10 ml 2 ML IV ONE ×2 (10:31)
--- NOTE | 2023-09-26 10:31 | ERPHSYRPT ---
- History of Present Illness Time Seen by Provider: 09/26/23 10:29 Physician History: Patient is an 83-year-old female presents to our ED with a 1 week history of worsening shortness of breath. Shortness of breath associated with a cough. Patient presented to the our ED tachypneic. Mild respiratory distress. However patient completing sentences. No associated chest pain. No nausea vomiting or diaphoresis. No rash. No known sick contacts. at bedside. They voiced no other complaints or concerns at this time. Portions of this note were created with voice recognition technology. There may be grammatical, spelling, punctuation or sound alike errors Timing/Duration: week(s) (1 week) Activities at Onset: none Severity of Dyspnea-Max: moderate Severity of Dyspnea-Current: mild Possible Cause: unknown cause Modifying Factors: Improves With: activity Associated Symptoms: cough Allergies/Adverse Reactions: codeine Allergy (Verified 09/26/23 10:34) propoxyphene [From Darvon] Allergy (Verified 09/26/23 10:34) Home Medications: Alendronate Sodium [Fosamax] 70 mg PO WEEKLY 07/23/22 [History] Amlodipine Besylate 5 mg [Norvasc 5 mg] 5 mg PO DAILY 07/23/22 [History] Donepezil HCl 10 mg [Aricept 10 MG] 10 mg PO HS 07/23/22 [History] Meloxicam 15 mg [Meloxicam 15 MG] 15 mg PO DAILY 07/23/22 [History] Simvastatin 40 mg PO DAILY 07/23/22 [History] hydroCHLOROthiazide [Hydrochlorothiazide] 12.5 mg PO DAILY 07/23/22 [History] Glimepiride 4 mg [Amaryl 4 mg] 4 mg PO DAILY 02/26/23 [History] Losartan Potassium 50 mg [Cozaar 50 MG] 50 mg PO DAILY 09/26/23 [History] Hx Tetanus, Diphtheria Vaccination/Date Given: Yes Hx Influenza Vaccination/Date Given: Yes (2021) Hx Pneumococcal Vaccination/Date Given: Yes (2019) Travel Risk - Vaccine Status Have you recieved a Covid-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: Yes [employer]: [employer] - Vaccination Dates Date of 2cond Vaccination (if applicable): 2020 - Review of Systems Constitutional: No Symptoms, No Fever, No Chills Eyes: No Symptoms Ears, Nose, & Throat: No Symptoms Respiratory: No Symptoms, No Cough, No Dyspnea Cardiac: No Symptoms, No Chest Pain, No Edema, No Syncope Abdominal/Gastrointestinal: No Symptoms, No Abdominal Pain, No Nausea, No Vomiting, No Diarrhea Genitourinary Symptoms: No Symptoms, No Dysuria Musculoskeletal: No Symptoms, No Back Pain, No Neck Pain Skin: No Symptoms, No Rash Neurological: No Symptoms, No Dizziness, No Focal Weakness, No Sensory Changes Psychological: No Symptoms Endocrine: No Symptoms Hematologic/Lymphatic: No Symptoms Immunological/Allergic: No Symptoms All Other Systems: Reviewed and Negative - Past Medical History Pertinent Past Medical History: Yes Neurological History: No Pertinent History Cardiac History: High Cholesterol, Hypertension Respiratory History: No Pertinent History Endocrine Medical History: Diabetes Type II Musculoskeletal History: Osteoarthritis 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 - Past Surgical History Past Surgical History: Yes Gastrointestinal: Appendectomy Musculoskeletal: Orthopedic Surgery Female Surgical History: Hysterectomy Other Surgical History: back, rt wrist - Social History Smoking Status: Never smoker Exposure to second hand smoke: No Drug Use: none Patient Lives Alone: No - Nursing Vital Signs Nursing Vital Signs: Initial Vital Signs Temperature 98.1 F 09/26/23 10:20 Pulse Rate 77 09/26/23 10:20 Respiratory Rate 26 H 09/26/23 10:20 Blood Pressure 121/68 09/26/23 10:20 O2 Sat by Pulse Oximetry 97 09/26/23 10:20 Pain Scale Pain Intensity 0 - Physical Exam General Appearance: no apparent distress, alert Eye Exam: PERRL/EOMI, eyes nml inspection Ears, Nose, Throat Exam: hearing grossly normal, normal ENT inspection, normal pharynx Neck Exam: normal inspection, supple, full range of motion Respiratory Exam: respiratory distress, diminished breath sounds, rhonchi, wheezing Cardiovascular/Chest Exam: normal heart sounds, regular rate/rhythm Abdominal/Gastrointestinal Exam: soft, No tenderness, No distention, No mass Extremity Exam: non-tender, normal range of motion, normal inspection, no calf tenderness, no pedal edema Neurologic Exam: alert, oriented x 3, cooperative, 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 nml as tested, sensation nml, No motor deficits Skin Exam: normal color, warm, No dry Lymphatic Exam: No adenopathy SpO2 Interpretation: normal SpO2: 97 O2 Delivery: Room Air - Course Nursing assessment & vital signs reviewed: Yes EKG Interpreted by Me: RATE (73), Sinus Rhythm, NORMAL AXIS, NORMAL INTERVALS - Radiology Exams Chest X-ray Interpretation: Teleradiologist Report (Hyperinflated lungs, calcified granuloma, osteopenia nonacute chest) Ordered Tests: Active Orders 24 hr Category Date Time Status Director General STAT Care 09/26/23 10:24 Active EKG-ER Only STAT Care 09/26/23 10:24 Active IV Insertion STAT Care 09/26/23 10:24 Active Pulse Oximetry (ED) STAT Care 09/26/23 10:24 Active CHEST 1 VIEW (PORTABLE) Stat Exams 09/26/23 12:52 Completed BLOOD CULTURE Stat Lab 09/26/23 10:40 Ordered CBC W DIFF Stat Lab 09/26/23 10:40 Completed CMP Stat Lab 09/26/23 10:40 Completed D-DIMER QUANTITATIVE Stat Lab 09/26/23 10:40 Completed NT PRO BNPII Stat Lab 09/26/23 10:40 Completed TROPONIN Q4H Lab 09/26/23 10:40 Completed TROPONIN Q4H Lab 09/26/23 14:30 Ordered TROPONIN Q4H Lab 09/26/23 18:30 Ordered Respiratory Therapy Assessment DAILY RT 09/26/23 10:55 Active Transfer Order Routine Transfer 09/26/23 Ordered Medication Summary Discontinued Medications Generic Name Dose Route Start Last Admin Trade Name Freq PRN Reason Stop Dose Admin Albuterol/Ipratropium 3 ml 09/26/23 10:32 09/26/23 10:55 Ipratropium/Albuterol Sulfate 3 Ml Ampul.Neb IH 09/26/23 10:33 3 ml STAT ONE Administration Albuterol/Ipratropium Confirm 09/26/23 10:42 Ipratropium/Albuterol Sulfate 3 Ml Ampul.Neb Administered 09/26/23 10:43 Dose 3 ml IH .STK-MED ONE Albuterol/Ipratropium 3 ml 09/26/23 13:07 09/26/23 13:07 Ipratropium/Albuterol Sulfate 3 Ml Ampul.Neb IH 09/26/23 13:08 3 ml STAT ONE Administration Albuterol/Ipratropium Confirm 09/26/23 13:06 Ipratropium/Albuterol Sulfate 3 Ml Ampul.Neb Administered 09/26/23 13:07 Dose 3 ml IH .STK-MED ONE Methylprednisolone Sodium 0 mg 09/26/23 10:31 09/26/23 10:57 Succinate 125 mg/ Sterile IV 09/26/23 10:32 125 mg Water 2 ml STAT ONE Administration Methylprednisolone Sodium Succinate Confirm 09/26/23 10:56 Methylprednis Sod Succ 125 Mg/2 Ml Vial Administered 09/26/23 10:57 Dose 125 mg .ROUTE .STK-MED ONE Sterile Water Confirm 09/26/23 10:55 Water For Injection,Sterile 10 Ml Vial Administered 09/26/23 10:56 Dose 10 ml IJ .STK-MED ONE Lab/Rad Data: Laboratory Result Diagrams 09/26/23 10:40 09/26/23 10:40 Laboratory Results 09/26/23 09/26/23 09/26/23 Range/Units 10:55 10:40 10:40 WBC (4.0-10.5) x10^3/uL RBC (4.1-5.4) x10^6/uL Hgb (12.0-16.0) g/dL Hct (35-47) % MCV (78-100) fL MCH (26-32) pg MCHC (32-36) g/dL RDW (11.5-14.0) % Plt Count (150-450) x10^3/uL MPV (7.5-11.0) fL Gran % (36.0-66.0) % Immature Gran % (Auto) (0.00-0.4) % Nucleat RBC Rel Count (0.00-0.1) % Eos # (Auto) (0-0.5) x10^3/uL Immature Gran # (Auto) (0.00-0.03) x10^3u/L Absolute Lymphs (auto) (1.0-4.6) x10^3/uL Absolute Monos (auto) (0.0-1.3) x10^3/uL Absolute Nucleated RBC (0.00-0.01) x10^3u/L Lymphocytes % (24.0-44.0) % Monocytes % (0.0-12.0) % Eosinophils % (0.00-5.0) % Basophils % (0.0-0.4) % Absolute Granulocytes (1.4-6.9) x10^3/uL Basophils # (0-0.4) x10^3/uL D-Dimer 0.87 H* (0.0-0.50) mg/L Sodium (137-145) mmol/L Potassium (3.5-5.1) mmol/L Chloride (98-107) mmol/L Carbon Dioxide (22-30) mmol/L Anion Gap (5-15) MEQ/L BUN (7-17) mg/dL Creatinine (0.52-1.04) mg/dL Estimated GFR ML/MIN Glucose (74-106) mg/dL Calcium (8.4-10.2) mg/dL Total Bilirubin (0.2-1.3) mg/dL AST (14-36) U/L ALT (0-35) U/L Alkaline Phosphatase (38-126) U/L Troponin I < 0.012 (0.000-0.034) ng/mL NT-Pro-B Natriuret Pep (<300) pg/mL Serum Total Protein (6.3-8.2) g/dL Albumin (3.5-5.0) g/dL Influenza Type A Ag NEGATIVE (NEGATIVE) Influenza Type B Ag NEGATIVE (NEGATIVE) RSV (PCR) POSITIVE (NEGATIVE) SARS-CoV-2 (PCR) NEGATIVE (NEGATIVE) 09/26/23 09/26/23 Range/Units 10:40 10:40 WBC 5.2 (4.0-10.5) x10^3/uL RBC 4.63 (4.1-5.4) x10^6/uL Hgb 13.4 (12.0-16.0) g/dL Hct 42.1 (35-47) % MCV 90.9 (78-100) fL MCH 28.9 (26-32) pg MCHC 31.8 L (32-36) g/dL RDW 15.5 H (11.5-14.0) % Plt Count 212 (150-450) x10^3/uL MPV 11.3 H (7.5-11.0) fL Gran % 50.5 (36.0-66.0) % Immature Gran % (Auto) 1.2 H (0.00-0.4) % Nucleat RBC Rel Count 0.0 (0.00-0.1) % Eos # (Auto) 0.17 (0-0.5) x10^3/uL Immature Gran # (Auto) 0.06 H (0.00-0.03) x10^3u/L Absolute Lymphs (auto) 1.95 (1.0-4.6) x10^3/uL Absolute Monos (auto) 0.35 (0.0-1.3) x10^3/uL Absolute Nucleated RBC 0.00 (0.00-0.01) x10^3u/L Lymphocytes % 37.6 (24.0-44.0) % Monocytes % 6.8 (0.0-12.0) % Eosinophils % 3.3 (0.00-5.0) % Basophils % 0.6 (0.0-0.4) % Absolute Granulocytes 2.62 (1.4-6.9) x10^3/uL Basophils # 0.03 (0-0.4) x10^3/uL D-Dimer (0.0-0.50) mg/L Sodium 137 (137-145) mmol/L Potassium 3.9 (3.5-5.1) mmol/L Chloride 101 (98-107) mmol/L Carbon Dioxide 26 (22-30) mmol/L Anion Gap 13.4 (5-15) MEQ/L BUN 16 (7-17) mg/dL Creatinine 1.01 (0.52-1.04) mg/dL Estimated GFR 55.9 ML/MIN Glucose 191 H (74-106) mg/dL Calcium 8.9 (8.4-10.2) mg/dL Total Bilirubin 0.60 (0.2-1.3) mg/dL AST 35 (14-36) U/L ALT 25 (0-35) U/L Alkaline Phosphatase 77 (38-126) U/L Troponin I (0.000-0.034) ng/mL NT-Pro-B Natriuret Pep 224 (<300) pg/mL Serum Total Protein 7.3 (6.3-8.2) g/dL Albumin 4.2 (3.5-5.0) g/dL Influenza Type A Ag (NEGATIVE) Influenza Type B Ag (NEGATIVE) RSV (PCR) (NEGATIVE) SARS-CoV-2 (PCR) (NEGATIVE) - Progress Progress: improved Air Movement: good Progress Note: Patient is a 83-year-old female presents to the emergency department for evaluation of progressive shortness of breath over 1 week. On exam patient is wheezing diminished breath sounds coarse. Chest x-ray reveals hyperinflated lungs. Blood cultures obtained. CBC CMP nonremarkable. Patient is RSV positive. Corrected D-dimer is normal. BNP within normal limits. Troponin negative. Patient received albuterol and Solu-Medrol treatment. No indication for antibiotics at this time. Patient reassessed. Symptoms improved. Case discussed with at 1:28 PM. Plan of care discussed with patient. Patient agrees to admission to [facility] for further evaluation and treatment. Portions of this note were created with voice recognition technology. There may be grammatical, spelling, punctuation or sound alike errors Complexity problem addressed is high, severe exacerbation threat to bodily function No critical care time Complexity of data reviewed and analyzed is extensive. Test ordered test reviewed. Results analyzed and correlated clinically with history and physical examination. Patient discussed with hospitalist at 128 PM Risk of complication and or risk of morbidity/mortality of patient management is high. Patient received albuterol nebulizer treatment. Patient requires hospitalization for further evaluation and treatment. Vital stable. Time spent to admit patient is approximately 20 minutes. Plan of care established for shared decision making. No social determinants of health present impede follow-up 09/26/23 13:34 Blood Culture(s) Obtained: Yes Antibiotics given: Yes Discussed with : Meseret Will see patient in: hospital (observation) Counseled pt/family regarding: lab results, diagnosis, rad results - Departure Departure Disposition: Observation Clinical Impression: RSV infection, Hyperinflation of lungs, Lung granuloma Condition: Stable Critical Care Time: No Referrals: MANJU ÁMRQUEZ MD [Primary Care Provider] - Follow up/PCP as directed
[2023-09-26] MEDS ORDERED: DUONEB 0.5-3 MG/3 ml Neb IH ONE ×4 (10:32→13:07)
[2023-09-26] MEDS ORDERED: Sterile H2O 10 ml IJ ONE (10:55)
[2023-09-26] MEDS ORDERED: solu-MEDROL ONE (10:56)
[2023-09-26 10:57] LABS: Absolute Neutrophil Ct (ANC) 2.62 x10^3/uL (1.4-6.9); BASOPHIL % 0.6 % (0.0-0.4); Basophil (Absolute #) 0.03 x10^3/uL (0-0.4); Eosinophil % 3.3 % (0.00-5.0); Eosinophil (Absolute #) 0.17 x10^3/uL (0-0.5); Hematocrit 42.1 % (35-47); Hemoglobin 13.4 g/dL (12.0-16.0); IMMATURE GRAN # 0.06 x10^3u/L (0.00-0.03); IMMATURE GRAN % 1.2 % (0.00-0.4); Lymphocyte (Absolute #) 1.95 x10^3/uL (1.0-4.6); Lymphocytes % 37.6 % (24.0-44.0); Mean Cell Volume 90.9 fL (78-100); Mean Corpuscular Hemoglobin 28.9 pg (26-32); Mean Corpuscular Hgb Concent. 31.8 g/dL (32-36); Mean Platelet Volume 11.3 fL (7.5-11.0); Monocyte (Absolute #) 0.35 x10^3/uL (0.0-1.3); Monocytes % 6.8 % (0.0-12.0); Neutrophil % 50.5 % (36.0-66.0); Platelet Count 212 x10^3/uL (150-450); Red Blood Count 4.63 x10^6/uL (4.1-5.4); Red Cell Distribution Width 15.5 % (11.5-14.0); White Blood Count 5.2 x10^3/uL (4.0-10.5)
[2023-09-26 11:17] LABS: ALBUMIN 4.2 g/dL (3.5-5.0); ANION GAP 13.4 MEQ/L (5-15); BILIRUBIN,TOTAL 0.6 mg/dL (0.2-1.3); Calcium 8.9 mg/dL (8.4-10.2); Creatinine 1 1.01 mg/dL (0.52-1.04); EST GLOMERULAR FILTRATION RATE 55.9 ML/MIN; Potassium 3.9 mmol/L (3.5-5.1); Total Protein 7.3 g/dL (6.3-8.2)
[2023-09-26 11:40] LABS: INFLUENZA A NEGATIVE (NEGATIVE); INFLUENZA B NEGATIVE (NEGATIVE); SARS-CoV-2 Xpert Express NEGATIVE (NEGATIVE)
[2023-09-26 11:43] LABS: RESPIRATORY SYNCTIAL VIRUS POSITIVE (NEGATIVE)
--- NOTE | 2023-09-26 13:24 | XRAY ---
Indication: Cough and short of breath. RSV. Comparison: None Portable chest inflated and clear with incidental tiny right base calcified granuloma and minimal subsegmental fibrosis/scarring. Heart not enlarged. Bony thorax intact with osteopenia, minimal degenerative changes, and incompletely visualized lumbar fusion hardware. Impression: Nonacute chest with chronic features.
--- NOTE | 2023-09-26 14:36 | PCM.HP ---
History of Present Illness - Chief Complaint Chief Complaint: RSV, SOB Date: 09/26/23 History of Present Illness: is a 83 year old female with PMHX of hyperlipidemia, HTN, Type II DM, and OA. She presented to our ED with a 1 week history of worsening shortness of breath, associated with a cough. Mild respiratory distress O2 88% at RA. She placed on 2 L NC and oxygen improved to 93 %. No associated chest pain. No nausea vomiting or diaphoresis. No rash. No known sick contacts. at bedside. Found to be RSV + in ER. All other labs unremarkable. D-dimer 0.87, chest CT with IV contrast ordered Chest XR negative for acute process. She received steriods and duoneb in ER. Will continue with same plan of care. Most likely d/c in AM. - Review of Systems Constitutional: No Fever, No Chills Eyes: No Symptoms Ears, Nose, & Throat: No Symptoms Respiratory: Cough, Short Of Breath Cardiac: No Chest Pain, No Edema, No Syncope Abdominal/Gastrointestinal: No Abdominal Pain, No Nausea, No Vomiting, No Diarrhea Genitourinary Symptoms: No Dysuria Musculoskeletal: No Back Pain, No Neck Pain Skin: No Rash Neurological: No Dizziness, No Focal Weakness, No Sensory Changes Psychological: No Symptoms Endocrine: No Symptoms Hematologic/Lymphatic: No Symptoms Immunological/Allergic: No Symptoms Medications & Allergies Home Medications: Home Medication List Alendronate Sodium [Fosamax] 70 mg PO WEEKLY 07/23/22 [History Confirmed 09/26/23] Amlodipine Besylate 5 mg [Norvasc 5 mg] 5 mg PO DAILY 07/23/22 [History Confirmed 09/26/23] Donepezil HCl 10 mg [Aricept 10 MG] 10 mg PO DAILY 07/23/22 [History Confirmed 09/26/23] Meloxicam 15 mg [Meloxicam 15 MG] 15 mg PO DAILY 07/23/22 [History Confirmed 09/26/23] Simvastatin 40 mg PO HS 07/23/22 [History Confirmed 09/26/23] hydroCHLOROthiazide [Hydrochlorothiazide] 12.5 mg PO DAILY 07/23/22 [History Confirmed 09/26/23] Glimepiride 4 mg [Amaryl 4 mg] 4 mg PO DAILY 02/26/23 [History Confirmed 09/26/23] Calcium Carbonate [Calcium] 1,000 mg PO DAILY 09/26/23 [History Confirmed 09/26/23] Dapagliflozin Propanediol [Farxiga] 5 mg PO HS 09/26/23 [History Confirmed 09/26/23] Losartan Potassium 50 mg [Cozaar 50 MG] 50 mg PO DAILY 09/26/23 [History Confirmed 09/26/23] Allergies/Adverse Reactions: Allergies Allergy/AdvReac Type Severity Reaction Status Date / Time codeine Allergy Verified 09/26/23 10:34 propoxyphene [From Darvon] Allergy Verified 09/26/23 10:34 - Past Medical History Past Medical History: Yes Neurological History: No Pertinent History Cardiac History: High Cholesterol, Hypertension Respiratory History: No Pertinent History Endocrine Medical History: Diabetes Type II Musculoskelatal History: Osteoarthritis Comment: 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 - Past Surgical History Past Surgical History: Yes GI Surgical History: Appendectomy Musculskeletal Surgical Hx: Orthopedic Surgery Female Surgical History: Hysterectomy Other Surgical History: back, rt wrist - Social History Smoking Status: Never smoker Exposure to second hand smoke: No Alcohol: None Drug Use: none - Physical Exam Vital Signs: Vital Signs - 24 hr Temp Pulse Resp BP BP Pulse Ox 09/26/23 14:00 99 H 15 111/65 93 L 09/26/23 13:38 97 09/26/23 13:30 91 H 15 140/65 93 L 09/26/23 13:17 70 18 93 L 09/26/23 13:00 68 18 118/64 95 09/26/23 12:30 69 17 125/68 94 L 09/26/23 12:00 68 19 114/67 88 L 09/26/23 11:31 78 13 122/72 89 L 09/26/23 11:00 73 24 126/71 92 L 09/26/23 10:56 71 22 93 L 09/26/23 10:45 96 09/26/23 10:30 73 18 127/66 93 L 09/26/23 10:20 98.1 F 77 26 H 121/68 96 General Appearance: no apparent distress, alert Neurologic Exam: alert, oriented x 3, cooperative, normal mood/affect, nml cerebellar function, nml station & gait, sensation nml, No motor deficits Eye Exam: PERRL/EOMI, eyes nml inspection Ears, Nose, Throat Exam: normal ENT inspection, TMs normal, pharynx normal, moist mucous membranes Neck Exam: normal inspection, non-tender, supple, full range of motion Respiratory Exam: normal breath sounds, lungs clear, No respiratory distress Cardiovascular Exam: regular rate/rhythm, normal heart sounds, normal peripheral pulses Gastrointestinal/Abdomen Exam: soft, normal bowel sounds, No tenderness, No mass Back Exam: normal inspection, normal range of motion, No CVA tenderness, No vertebral tenderness Extremity Exam: normal inspection, normal range of motion, pelvis stable Skin Exam: normal color, warm, dry, No rash Lymphatic Exam: No adenopathy Results - Labs Lab/Micro Results: Lab Results-Last 24 Hours 09/26/23 09/26/23 09/26/23 Range/Units 10:40 10:40 10:40 WBC 5.2 (4.0-10.5) x10^3/uL RBC 4.63 (4.1-5.4) x10^6/uL Hgb 13.4 (12.0-16.0) g/dL Hct 42.1 (35-47) % MCV 90.9 (78-100) fL MCH 28.9 (26-32) pg MCHC 31.8 L (32-36) g/dL RDW 15.5 H (11.5-14.0) % Plt Count 212 (150-450) x10^3/uL MPV 11.3 H (7.5-11.0) fL Gran % 50.5 (36.0-66.0) % Immature Gran % (Auto) 1.2 H (0.00-0.4) % Nucleat RBC Rel Count 0.0 (0.00-0.1) % Eos # (Auto) 0.17 (0-0.5) x10^3/uL Immature Gran # (Auto) 0.06 H (0.00-0.03) x10^3u/L Absolute Lymphs (auto) 1.95 (1.0-4.6) x10^3/uL Absolute Monos (auto) 0.35 (0.0-1.3) x10^3/uL Absolute Nucleated RBC 0.00 (0.00-0.01) x10^3u/L Lymphocytes % 37.6 (24.0-44.0) % Monocytes % 6.8 (0.0-12.0) % Eosinophils % 3.3 (0.00-5.0) % Basophils % 0.6 (0.0-0.4) % Absolute Granulocytes 2.62 (1.4-6.9) x10^3/uL Basophils # 0.03 (0-0.4) x10^3/uL D-Dimer 0.87 H* (0.0-0.50) mg/L Sodium 137 (137-145) mmol/L Potassium 3.9 (3.5-5.1) mmol/L Chloride 101 (98-107) mmol/L Carbon Dioxide 26 (22-30) mmol/L Anion Gap 13.4 (5-15) MEQ/L BUN 16 (7-17) mg/dL Creatinine 1.01 (0.52-1.04) mg/dL Estimated GFR 55.9 ML/MIN Glucose 191 H (74-106) mg/dL Calcium 8.9 (8.4-10.2) mg/dL Total Bilirubin 0.60 (0.2-1.3) mg/dL AST 35 (14-36) U/L ALT 25 (0-35) U/L Alkaline Phosphatase 77 (38-126) U/L Troponin I (0.000-0.034) ng/mL NT-Pro-B Natriuret Pep 224 (<300) pg/mL Serum Total Protein 7.3 (6.3-8.2) g/dL Albumin 4.2 (3.5-5.0) g/dL Influenza Type A Ag (NEGATIVE) Influenza Type B Ag (NEGATIVE) RSV (PCR) (NEGATIVE) SARS-CoV-2 (PCR) (NEGATIVE) 09/26/23 09/26/23 Range/Units 10:40 10:55 WBC (4.0-10.5) x10^3/uL RBC (4.1-5.4) x10^6/uL Hgb (12.0-16.0) g/dL Hct (35-47) % MCV (78-100) fL MCH (26-32) pg MCHC (32-36) g/dL RDW (11.5-14.0) % Plt Count (150-450) x10^3/uL MPV (7.5-11.0) fL Gran % (36.0-66.0) % Immature Gran % (Auto) (0.00-0.4) % Nucleat RBC Rel Count (0.00-0.1) % Eos # (Auto) (0-0.5) x10^3/uL Immature Gran # (Auto) (0.00-0.03) x10^3u/L Absolute Lymphs (auto) (1.0-4.6) x10^3/uL Absolute Monos (auto) (0.0-1.3) x10^3/uL Absolute Nucleated RBC (0.00-0.01) x10^3u/L Lymphocytes % (24.0-44.0) % Monocytes % (0.0-12.0) % Eosinophils % (0.00-5.0) % Basophils % (0.0-0.4) % Absolute Granulocytes (1.4-6.9) x10^3/uL Basophils # (0-0.4) x10^3/uL D-Dimer (0.0-0.50) mg/L Sodium (137-145) mmol/L Potassium (3.5-5.1) mmol/L Chloride (98-107) mmol/L Carbon Dioxide (22-30) mmol/L Anion Gap (5-15) MEQ/L BUN (7-17) mg/dL Creatinine (0.52-1.04) mg/dL Estimated GFR ML/MIN Glucose (74-106) mg/dL Calcium (8.4-10.2) mg/dL Total Bilirubin (0.2-1.3) mg/dL AST (14-36) U/L ALT (0-35) U/L Alkaline Phosphatase (38-126) U/L Troponin I < 0.012 (0.000-0.034) ng/mL NT-Pro-B Natriuret Pep (<300) pg/mL Serum Total Protein (6.3-8.2) g/dL Albumin (3.5-5.0) g/dL Influenza Type A Ag NEGATIVE (NEGATIVE) Influenza Type B Ag NEGATIVE (NEGATIVE) RSV (PCR) POSITIVE (NEGATIVE) SARS-CoV-2 (PCR) NEGATIVE (NEGATIVE) Microbiology 09/26/23 10:24 Blood Culture Gram Stain - Final Blood Not Reportable - Radiology Impressions Radiology Exams & Impressions: Radiology Procedures Category Date Time Status CHEST 1 VIEW (PORTABLE) Stat Exams 09/26/23 12:52 Completed Assessment/Plan (1) Hypoxia Current Visit: Yes Status: Acute Assessment & Plan: - Steroids, Duonebs - O2 to keep sat > 92% - Baseline RA - Currently on 2LNC 93% - D-Dimer 0.87- Chest CT with IV contrast pending - Chest XR 09/26/23 Impression: Nonacute chest with chronic features. Code(s): R09.02 - HYPOXEMIA (2) RSV infection Current Visit: Yes Status: Acute Assessment & Plan: - + test in ER -supportive care - tessalon peardayana for cough Code(s): B33.8 - OTHER SPECIFIED VIRAL DISEASES (3) Hyperlipemia Current Visit: Yes Status: Chronic Assessment & Plan: - cont statin Code(s): E78.5 - HYPERLIPIDEMIA, UNSPECIFIED (4) Type II diabetes mellitus Current Visit: Yes Status: Chronic Assessment & Plan: - accuchecks ac/hs, humalog s/s - continue home oral med that we have (5) HTN (hypertension) Current Visit: Yes Status: Chronic Assessment & Plan: - continue home meds - BP stable VTE: lovenox Next of KIN: , Zaire Paz [phone] Code status: Full D/C plan: tomorrow Code(s): I10 - ESSENTIAL (PRIMARY) HYPERTENSION
[2023-09-26] MEDS ORDERED: Tessalon Perles 100 MG PO PRN (16:24)
[2023-09-26] MEDS ORDERED: TYLENOL 325 MG PO PRN (16:29)
--- NOTE | 2023-09-26 16:57 | XRAY ---
Indication: Short of breath. Elevated d-dimer. Multiple contiguous axial images obtained through the chest using 80 cc Isovue 370 contrast and PE protocol. Comparison: February 26, 2023. Good opacification of the pulmonary arteries to include the lobar and segmental branches. No pulmonary embolus. Heart not enlarged. Aorta again mildly arteriosclerotic without aneurysm/dissection. Stable tiny left superhilar calcified nodes. No pathologic mediastinal/hilar lymphadenopathy. Lungs again demonstrates minimal bilateral dependent atelectasis. No suspicious pulmonary mass/nodule, infiltrate, effusion, or pneumothorax. Bony thorax demonstrates new remote-appearing T3 superior endplate fracture with less than 25% height loss. Stable osteopenia, moderate degenerative changes to the spine, superior L1 Schmorl node, and incompletely visualized lumbar fusion hardware. Limited upper abdomen again demonstrate small left upper pole renal cyst and tiny splenic calcified granulomas. Impression: 1. Continued negative pulmonary embolus. No new/acute cardiopulmonary abnormalities. 2. Again chronic findings including arteriosclerotic disease, chronic bony findings, left renal cyst, and old granulomatous disease.
[2023-09-26] MEDS: ENOXAPARIN SODIUM SQ SCH (16:59)
[2023-09-26] MEDS: HUMALOG SQ PRN ×2 (17:15→21:29)
[2023-09-26] MEDS: DUONEB 0.5-3 MG/3 ml Neb IH SCH (19:09)
[2023-09-26] MEDS: DELTASONE 20 MG PO SCH (21:30)
[2023-09-26] MEDS ORDERED: ZOCOR 20MG PO SCH (22:00)
[2023-09-27] MEDS: DUONEB 0.5-3 MG/3 ml Neb IH SCH ×2 (01:09→07:03)
[2023-09-27 04:56] VITALS: TEMP 97.7
[2023-09-27 05:27] LABS: Hematocrit 36.9 % (35-47); Hemoglobin 11.7 g/dL (12.0-16.0); Mean Cell Volume 89.1 fL (78-100); Mean Corpuscular Hemoglobin 28.3 pg (26-32); Mean Corpuscular Hgb Concent. 31.7 g/dL (32-36); Mean Platelet Volume 11.1 fL (7.5-11.0); Platelet Count 204 x10^3/uL (150-450); Red Blood Count 4.14 x10^6/uL (4.1-5.4); White Blood Count 10.5 x10^3/uL (4.0-10.5)
[2023-09-27 05:52] LABS: ANION GAP 15.5 MEQ/L (5-15); BILIRUBIN,TOTAL 0.5 mg/dL (0.2-1.3); Calcium 8.3 mg/dL (8.4-10.2); Creatinine 1 1.02 mg/dL (0.52-1.04); EST GLOMERULAR FILTRATION RATE 55.3 ML/MIN; Potassium 3.5 mmol/L (3.5-5.1); Total Protein 6.7 g/dL (6.3-8.2)
[2023-09-27 07:29] VITALS: RESP 20
[2023-09-27] MEDS ORDERED: Sodium Chloride 0.9% 1000 ML 1,000 ML IV SCH (08:00)
[2023-09-27] MEDS ORDERED: AMARYL 4 MG PO SCH (08:00)
[2023-09-27] MEDS: HUMALOG SQ PRN ×2 (08:12→12:03)
[2023-09-27] MEDS: DELTASONE 20 MG PO SCH (09:01)
[2023-09-27] MEDS: ENOXAPARIN SODIUM SQ SCH (09:01)
[2023-09-27 09:03] VITALS: BP 139/66; PULSE 105
[2023-09-27] MEDS ORDERED: Cozaar 50 MG PO SCH (10:00)
[2023-09-27] MEDS ORDERED: MELOXICAM PO SCH (10:00)
[2023-09-27] MEDS ORDERED: Calcium 500MG W/Vit D Tablet PO SCH (10:00)
[2023-09-27] MEDS ORDERED: NORVASC 5 MG PO SCH (10:00)
[2023-09-27] MEDS ORDERED: Aricept 10 MG PO SCH (10:00)
[2023-09-27] MEDS ORDERED: hydroDIURIL 25 MG PO SCH (10:00)
--- NOTE | 2023-09-27 12:42 | PCM.DS ---
Discharge Summary Date of Admission: 09/26/23 14:22 Date of Discharge: 09/27/23 Admitting Physician: NETO BROWER MD Primary Care Provider: MANJU MÁRQUEZ Allergies Allergies codeine Allergy (Verified 09/26/23 10:34) propoxyphene [From Darvon] Allergy (Verified 09/26/23 10:34) Hospital Summary - Hospital Course Hospital Course: 09/26/23 is a 83 year old female with PMHX of hyperlipidemia, HTN, Type II DM, and OA. She presented to our ED with a 1 week history of worsening shortness of breath, associated with a cough. Mild respiratory distress O2 88% at RA. She placed on 2 L NC and oxygen improved to 93 %. No associated chest pain. No nausea vomiting or diaphoresis. No rash. No known sick contacts. at bedside. Found to be RSV + in ER. All other labs unremarkable. D-dimer 0.87, chest CT with IV contrast ordered Chest XR negative for acute process. She received steriods and duoneb in ER. Will continue with same plan of care. Most likely d/c in AM. 09/27/23 Pt sitting up in a chair. She reports she is feeling much better and not SOB. She is no longer requiring oxygen. She did not qualify for home oxygen. CT was negative for PE. IVF started for Na+ 129. Pt reports she continues to drink no added sugar Gatorade at home. Advised to f/u with PCP for OP labs. Appointment made for f/u. She denies any further concerns at this time and would like to go home. - Vitals & Intake/Output Vital Signs: Vital Signs Temperature 97.7 F 09/27/23 07:28 Pulse Rate 105 H 09/27/23 09:02 Respiratory Rate 20 09/27/23 07:28 Blood Pressure 139/66 09/27/23 09:02 O2 Sat by Pulse Oximetry 93 L 09/27/23 07:28 Intake & Output: Intake & Output 09/25/23 09/26/23 09/27/23 09/28/23 11:59 11:59 11:59 11:59 Intake Total 740 Output Total 1500 Balance -760 Weight 65.7 kg 64.1 kg - Lab Result Diagrams: 09/27/23 04:50 09/27/23 04:50 Lab Results-Last 24 Hrs: Lab Results-Last 24 Hours 09/26/23 09/26/23 09/26/23 Range/Units 10:40 14:45 17:01 WBC (4.0-10.5) x10^3/uL RBC (4.1-5.4) x10^6/uL Hgb (12.0-16.0) g/dL Hct (35-47) % MCV (78-100) fL MCH (26-32) pg MCHC (32-36) g/dL RDW (11.5-14.0) % Plt Count (150-450) x10^3/uL MPV (7.5-11.0) fL Sodium (137-145) mmol/L Potassium (3.5-5.1) mmol/L Chloride (98-107) mmol/L Carbon Dioxide (22-30) mmol/L Anion Gap (5-15) MEQ/L BUN (7-17) mg/dL Creatinine (0.52-1.04) mg/dL Estimated GFR ML/MIN Glucose (74-106) mg/dL POC Glucometer 279 H (74 to 106) mg/dL Hemoglobin A1c 7.81 H (4.5-6.0) % Calcium (8.4-10.2) mg/dL Total Bilirubin (0.2-1.3) mg/dL AST (14-36) U/L ALT (0-35) U/L Alkaline Phosphatase (38-126) U/L Troponin I < 0.012 (0.000-0.034) ng/mL Serum Total Protein (6.3-8.2) g/dL Albumin (3.5-5.0) g/dL 09/26/23 09/26/23 09/27/23 Range/Units 18:40 21:21 04:50 WBC 10.5 (4.0-10.5) x10^3/uL RBC 4.14 (4.1-5.4) x10^6/uL Hgb 11.7 L (12.0-16.0) g/dL Hct 36.9 (35-47) % MCV 89.1 (78-100) fL MCH 28.3 (26-32) pg MCHC 31.7 L (32-36) g/dL RDW 15.0 H (11.5-14.0) % Plt Count 204 (150-450) x10^3/uL MPV 11.1 H (7.5-11.0) fL Sodium (137-145) mmol/L Potassium (3.5-5.1) mmol/L Chloride (98-107) mmol/L Carbon Dioxide (22-30) mmol/L Anion Gap (5-15) MEQ/L BUN (7-17) mg/dL Creatinine (0.52-1.04) mg/dL Estimated GFR ML/MIN Glucose (74-106) mg/dL POC Glucometer 364 H (74 to 106) mg/dL Hemoglobin A1c (4.5-6.0) % Calcium (8.4-10.2) mg/dL Total Bilirubin (0.2-1.3) mg/dL AST (14-36) U/L ALT (0-35) U/L Alkaline Phosphatase (38-126) U/L Troponin I < 0.012 (0.000-0.034) ng/mL Serum Total Protein (6.3-8.2) g/dL Albumin (3.5-5.0) g/dL 09/27/23 09/27/23 09/27/23 Range/Units 04:50 06:59 11:41 WBC (4.0-10.5) x10^3/uL RBC (4.1-5.4) x10^6/uL Hgb (12.0-16.0) g/dL Hct (35-47) % MCV (78-100) fL MCH (26-32) pg MCHC (32-36) g/dL RDW (11.5-14.0) % Plt Count (150-450) x10^3/uL MPV (7.5-11.0) fL Sodium 129 L D (137-145) mmol/L Potassium 3.5 (3.5-5.1) mmol/L Chloride 96 L (98-107) mmol/L Carbon Dioxide 20 L (22-30) mmol/L Anion Gap 15.5 H (5-15) MEQ/L BUN 24 H (7-17) mg/dL Creatinine 1.02 (0.52-1.04) mg/dL Estimated GFR 55.3 ML/MIN Glucose 269 H (74-106) mg/dL POC Glucometer 276 H 170 H (74 to 106) mg/dL Hemoglobin A1c (4.5-6.0) % Calcium 8.3 L (8.4-10.2) mg/dL Total Bilirubin 0.50 (0.2-1.3) mg/dL AST 32 (14-36) U/L ALT 24 (0-35) U/L Alkaline Phosphatase 70 (38-126) U/L Troponin I (0.000-0.034) ng/mL Serum Total Protein 6.7 (6.3-8.2) g/dL Albumin 4.0 (3.5-5.0) g/dL Micro Results-Entire Visit: Accuchecks Date 09/27/23 Date 09/26/23 Time 17:13 - Radiology Exams Ordered Rad Exams-Entire Visit: Radiology Procedures Category Date Time Status CHEST 1 VIEW (PORTABLE) Stat Exams 09/26/23 12:52 Completed CHEST WITH CONTRAST [CT] Stat Exams 09/26/23 15:02 Completed - Procedures and Test Procedures and Tests throughout Hospitalization: Therapy Orders & Screens 09/26/23 10:55 Respiratory Therapy Assessment DAILY Comment: 09/26/23 15:53 Oxygen Nasal Cannula 2 lpm Comment: Diagnosis: RSV, SOB 09/27/23 07:59 RT Miscellaneous Order ROUTINE Comment: Physician Instructions: Reason For Exam: eval for home O2 Diagnosis: RSV, SOB Discharge Exam General Appearance: no apparent distress, alert Neurologic Exam: alert, oriented x 3, cooperative, normal mood/affect, nml cerebellar function, sensation nml, No motor deficits Eye Exam: PERRL, EOMI, eyes nml inspection Ears, Nose, Throat Exam: normal ENT inspection, pharynx normal, moist mucous membranes Neck Exam: normal inspection, non-tender, supple, full range of motion Respiratory Exam: normal breath sounds, lungs clear, No respiratory distress Cardiovascular Exam: regular rate/rhythm, normal heart sounds Gastrointestinal/Abdomen Exam: soft, No tenderness, No mass Pelvic Exam: deferred Rectal Exam: deferred Back Exam: normal inspection, normal range of motion, No CVA tenderness, No vertebral tenderness Extremity Exam: normal inspection, normal range of motion Skin Exam: normal color, warm, dry Final Diagnosis/Problem List - Final Discharge Diagnosis/Problem (1) Hypoxia Current Visit: Yes Status: Acute Code(s): R09.02 - HYPOXEMIA (2) RSV infection Current Visit: Yes Status: Acute Code(s): B33.8 - OTHER SPECIFIED VIRAL DISEASES (3) Hyperlipemia Current Visit: Yes Status: Chronic Code(s): E78.5 - HYPERLIPIDEMIA, UNSPECIFIED (4) Type II diabetes mellitus Current Visit: Yes Status: Chronic (5) HTN (hypertension) Current Visit: Yes Status: Chronic Assessment & Plan: (1) Hypoxia Current Visit: Yes Status: Acute Assessment & Plan: - Steroids, Duonebs - O2 to keep sat > 92% - Baseline RA - Currently on 2LNC 93% - D-Dimer 0.87- Chest CT with IV contrast pending - Chest XR 09/26/23 Impression: Nonacute chest with chronic features. 09/27/23 - RA - did not qualify for home O2 - CT chest with IV contrast Impression: 1. Continued negative pulmonary embolus. No new/acute cardiopulmonary abnormalities. 2. Again chronic findings including arteriosclerotic disease, chronic bony findings, left renal cyst, and old granulomatous disease. Code(s): R09.02 - HYPOXEMIA (2) RSV infection Current Visit: Yes Status: Acute Assessment & Plan: - + test in ER -supportive care - tessalon pearls for cough Code(s): B33.8 - OTHER SPECIFIED VIRAL DISEASES (3) Hyperlipemia Current Visit: Yes Status: Chronic Assessment & Plan: - cont statin Code(s): E78.5 - HYPERLIPIDEMIA, UNSPECIFIED (4) Type II diabetes mellitus Current Visit: Yes Status: Chronic Assessment & Plan: - accuchecks ac/hs, humalog s/s - continue home oral med that we have -Uncontrolled- recent med changes with PCP per pt - A1C 7.81 (5) HTN (hypertension) Current Visit: Yes Status: Chronic Assessment & Plan: - continue home meds - BP stable Code(s): I10 - ESSENTIAL (PRIMARY) HYPERTENSION (6) Hyponatremia Current Visit: Yes Status: Acute Code(s): E87.1 - HYPO-OSMOLALITY AND HYPONATREMIA - Discharge Discharge Date: 09/27/23 Disposition: Home, Self-Care Condition: Stable Prescriptions: New Prednisone 20 mg [Deltasone 20 mg] 20 mg PO BID 4 Days #7 tablet Benzonatate 100 mg PO TID 10 Days #30 cap Continue Donepezil HCl 10 mg [Aricept 10 MG] 10 mg PO DAILY Amlodipine Besylate 5 mg [Norvasc 5 mg] 5 mg PO DAILY hydroCHLOROthiazide [Hydrochlorothiazide] 12.5 mg PO DAILY Simvastatin 40 mg PO HS Meloxicam 15 mg [Meloxicam 15 MG] 15 mg PO DAILY Alendronate Sodium [Fosamax] 70 mg PO WEEKLY Glimepiride 4 mg [Amaryl 4 mg] 4 mg PO DAILY Losartan Potassium 50 mg [Cozaar 50 MG] 50 mg PO DAILY Dapagliflozin Propanediol [Farxiga] 5 mg PO HS Calcium Carbonate [Calcium] 1,000 mg PO DAILY Follow up with: MANJU MÁRQUEZ MD [Primary Care Provider] - 10/04/23 3:00 pm ([facility])
[2023-09-27 13:31] VITALS: O2SAT 95
[2023-09-30] MEDS ORDERED: Fosamax 70 MG PO SCH (06:00)
== END 2023-09-27 13:33 | disposition home or self-care (01) ==
LOC: ED 10:20 → MED SURG 14:22
PROVIDERS: ADMIT Internal Medicine; ATTEND Internal Medicine
DX: R09.02 Hypoxemia (principal); B97.4 Respiratory syncytial virus as the cause of diseases classified elsewhere; E78.5 Hyperlipidemia, unspecified; E11.9 Type 2 diabetes mellitus without complications; I10 Essential (primary) hypertension; E87.1 Hypo-osmolality and hyponatremia; Z79.899 Other long term (current) drug therapy; Z20.828 Contact with and (suspected) exposure to other viral communicable diseases
CPT/HCPCS: 0241U; 36000; 36415; 71045; 71260; 80053; 82947; 83036; 83880; 84484; 85025; 85027; 85379; 87040; 93005; 93041; 94640; 94760; 94762; 96374; 99285; Q3014; 93268; J1650; J1817; J2930; A9270-GY; G0378

== ENCOUNTER 2023-10-17 07:28 | Day surgery (SDC) | payer MEDICARE ==
[2023-10-17] MEDS ORDERED: Depo-Medrol 40 MG/ML IM ONE (07:29)
[2023-10-17] MEDS ORDERED: BUPIVACAINE 0.5% VIAL IJ ONE (07:29)
[2023-10-17] MEDS ORDERED: DIPRIVAN 200 MG/20 ML IV ONE (09:23)
--- NOTE | 2023-10-17 10:45 | XRAY ---
Indication: Bilateral L4-S1 MBB. Intraoperative fluoroscopy provided for 29 seconds. 3 digital spot images submitted for interpretation demonstrates posterior needle tips projecting over the expected left and right L4-S1 nerve roots. Correlate with intraoperative findings/report. Incidental L2-L4 fusion hardware.
--- NOTE | 2023-10-17 10:48 | XRAY ---
29 seconds of fluoroscopy was used in surgery for a bilateral L4-S1 MBB.
[2023-10-17] MEDS ORDERED: Lactated Ringers 1,000 ML IV ONE (13:36)
== END 2023-10-17 09:56 | disposition home or self-care (01) ==
LOC: SDC-PAIN 07:28
PROVIDERS: ATTEND Psychiatry & Neurology Pain Medicine
DX: M47.816 Spondylosis without myelopathy or radiculopathy, lumbar region (principal); E11.9 Type 2 diabetes mellitus without complications
CPT/HCPCS: 64493; 64494; 72020; 77002; 82947; J1030; J2704

== ENCOUNTER 2023-11-28 07:19 | Day surgery (SDC) | payer MEDICARE ==
[2023-11-28] MEDS ORDERED: Depo-Medrol 40 MG/ML IM ONE (07:20)
[2023-11-28] MEDS ORDERED: LIDOCAINE HCL 1% 50 MG/5 ML VL PF IJ ONE (07:20)
[2023-11-28] MEDS ORDERED: BUPIVACAINE 0.5% VIAL IJ ONE (07:20)
[2023-11-28] MEDS ORDERED: DIPRIVAN 200 MG/20 ML IV ONE (08:46)
[2023-11-28] MEDS ORDERED: Lactated Ringers 1,000 ML IV ONE (10:54)
--- NOTE | 2023-11-28 11:37 | XRAY ---
Indication: Right L4-S1 RFA. Intraoperative fluoroscopy provided for 20 seconds. 4 digital spot image submitted for interpretation demonstrates posterior needle tips projecting over the expected right L4-S1 nerve roots. Correlate with intraoperative findings/report. Incidental incompletely visualized mid lumbar fusion hardware.
--- NOTE | 2023-11-28 13:07 | XRAY ---
20 seconds of fluoroscopy was used in surgery for a right L4-S1 RFA.
== END 2023-11-28 09:16 | disposition home or self-care (01) ==
LOC: SDC-PAIN 07:19
PROVIDERS: ATTEND Psychiatry & Neurology Pain Medicine
DX: M47.816 Spondylosis without myelopathy or radiculopathy, lumbar region (principal); E11.9 Type 2 diabetes mellitus without complications
CPT/HCPCS: 64635; 64636; 72100; 77002; 82947; 99100; J1030; J2001; J2704

== ENCOUNTER 2023-12-05 07:12 | Day surgery (SDC) | payer MEDICARE ==
[2023-12-05] MEDS ORDERED: LIDOCAINE HCL 1% 50 MG/5 ML VL PF IJ ONE (07:13)
[2023-12-05] MEDS ORDERED: Depo-Medrol 40 MG/ML IM ONE (07:13)
[2023-12-05] MEDS ORDERED: BUPIVACAINE 0.5% VIAL IJ ONE (07:13)
[2023-12-05] MEDS ORDERED: DIPRIVAN 200 MG/20 ML IV ONE (09:12)
[2023-12-05] MEDS ORDERED: Lactated Ringers 1,000 ML IV ONE (10:02)
--- NOTE | 2023-12-05 10:10 | XRAY ---
Indication: Left L4-S1 RFA. Intraoperative fluoroscopy provided for 27 seconds. 3 digital spot image submitted for interpretation demonstrates posterior needle tips projecting over expected left L4-S1 nerve roots. Correlate with intraoperative findings/report. Incidental incompletely visualized mid lumbar fusion hardware.
--- NOTE | 2023-12-05 12:08 | XRAY ---
27 seconds of fluoroscopy was used in surgery for a left L4-S1 RFA.
== END 2023-12-05 09:55 | disposition home or self-care (01) ==
LOC: SDC-PAIN 07:12
PROVIDERS: ATTEND Psychiatry & Neurology Pain Medicine
DX: M47.816 Spondylosis without myelopathy or radiculopathy, lumbar region (principal); E11.9 Type 2 diabetes mellitus without complications
CPT/HCPCS: 64635; 64636; 72100; 77002; 82947; 99100; J1030; J2001; J2704

== ENCOUNTER 2024-01-09 07:07 | Day surgery (SDC) | payer MEDICARE ==
[2024-01-09] MEDS ORDERED: Depo-Medrol 40 MG/ML IM ONE (07:08)
[2024-01-09] MEDS ORDERED: Sodium Chloride 0.9(Preservative Free) 10 ML IJ ONE (07:08)
[2024-01-09] MEDS ORDERED: XYLOCAINE-MPF 1% 5ML SDV IJ ONE (07:08)
[2024-01-09] MEDS ORDERED: DIPRIVAN 200 MG/20 ML IV ONE (09:25)
--- NOTE | 2024-01-09 10:43 | XRAY ---
Indication: Lumbar TRISTAN Intraoperative fluoroscopy provided for 12 seconds. 2 digital spot image submitted for interpretation demonstrates posterior needle tip projecting posterior to lumbosacral junction. Small amount of contrast injected for needle tip placement. Correlate with intraoperative findings/report. Incidental incompletely visualized mid lumbar fusion hardware.
[2024-01-09] MEDS ORDERED: Lactated Ringers 1,000 ML IV ONE (11:27)
--- NOTE | 2024-01-10 13:53 | XRAY ---
12 seconds of fluoroscopy was used in surgery for a lumbar TRISTAN.
== END 2024-01-09 09:46 | disposition home or self-care (01) ==
LOC: SDC-PAIN 07:07
PROVIDERS: ATTEND Psychiatry & Neurology Pain Medicine
DX: M54.16 Radiculopathy, lumbar region (principal); E11.9 Type 2 diabetes mellitus without complications
CPT/HCPCS: 62323; 72100; 77003; 82947; J1010; J2704; Q9966

== ENCOUNTER 2024-02-27 07:27 | Day surgery (SDC) | payer MEDICARE ==
[2024-02-27] MEDS ORDERED: Depo-Medrol 40 MG/ML IM ONE (07:28)
[2024-02-27] MEDS ORDERED: BUPIVACAINE 0.5% VIAL IJ ONE (07:28)
[2024-02-27] MEDS ORDERED: DIPRIVAN 200 MG/20 ML IV ONE (09:42)
--- NOTE | 2024-02-27 11:03 | XRAY ---
Indication: Bilateral SI joint injection Intraoperative fluoroscopy provided for 29 seconds. 2 digital spot image submitted for interpretation demonstrates posterior needle tips project over the expected left and right SI joint. Small amount of contrast injected for needle tip placement. Correlate with intraoperative findings/report.
--- NOTE | 2024-02-27 11:04 | XRAY ---
29 seconds of fluoroscopy was used in surgery for a bilateral sacroiliac joint injection.
[2024-02-27] MEDS ORDERED: Lactated Ringers 1,000 ML IV ONE (12:12)
== END 2024-02-27 10:11 | disposition home or self-care (01) ==
LOC: SDC-PAIN 07:27
PROVIDERS: ATTEND Psychiatry & Neurology Pain Medicine
DX: M46.1 Sacroiliitis, not elsewhere classified (principal); E11.9 Type 2 diabetes mellitus without complications
CPT/HCPCS: 01992; 27096; 72202; 77002; 82947; 99100; G0260; J1010; J2704; Q9966

== ENCOUNTER 2024-06-23 06:31 | Emergency (ER) | payer MEDICARE ==
[2024-06-23 06:42] VITALS: TEMP 97
--- NOTE | 2024-06-23 07:05 | ERPHSYRPT ---
<EMMAZORAMILA OAKES - Last Filed: 06/23/24 07:07> - History of Present Illness Time Seen by Provider: 06/23/24 07:01 Historian: patient, family Exam Limitations: no limitations Patient Subjective Stated Complaint: chest pain that started 1 hr prior to arrival, pt states the pain came suddenly while patient was sitting down, rating pain 10/10 upon arrival but pt did state that pain eased up during triage to 8/10, pt radiates to back Triage Nursing Assessment: pt ambulatory to bed from wheelchair with assist x1, pt alert and oriented x3, skin pwd, pt c/o L sided chest pain located primarily under the L breast and radiates to back, heart tones normal, no edema noted, radial pulses strong and regular bilaterally, cap refill less than 2 secs Physician History: pt was up early this am and then got CP which has decreased to 1/10 now - no prior CP or CAD per pt. Discussed risks/benefits of testing with pt and spouse including CBC, CMP, Trop, BNP, Lactate, BNP, CXR, EKG UA , D DImer, and they wish to proceed , so these are ordered. Results discussed with pt and spouse. Timing/Duration: today Activities at Onset: none Location: substernal Chest Pain Radiation: back Severity of Pain-Max: moderate Severity of Pain-Current: moderate Modifying Factors: Improves With: nothing Associated Symptoms: back pain Prior Chest Pain/Cardiac Workup: no prior cardiac workup Nitro Today/Relief: 0.4 mg x 1, provided by ED Aspirin Treatment Today: 81 mg x 4, provided by ED Allergies/Adverse Reactions: codeine Allergy (Verified 06/23/24 06:32) propoxyphene [From Darvon] Allergy (Verified 06/23/24 06:32) Home Medications: Alendronate Sodium [Fosamax] 70 mg PO WEEKLY 07/23/22 [History] Amlodipine Besylate 5 mg [Norvasc 5 mg] 5 mg PO DAILY 07/23/22 [History] Donepezil HCl 10 mg [Aricept 10 MG] 10 mg PO DAILY 07/23/22 [History] Simvastatin 40 mg PO HS 07/23/22 [History] hydroCHLOROthiazide [Hydrochlorothiazide] 12.5 mg PO HS 07/23/22 [History] Glimepiride 4 mg [Amaryl 4 mg] 4 mg PO DAILY 02/26/23 [History] Calcium Carbonate [Calcium] 1,000 mg PO DAILY 09/26/23 [History] Dapagliflozin Propanediol [Farxiga] 5 mg PO HS 09/26/23 [History] Losartan Potassium 50 mg [Cozaar 50 MG] 50 mg PO DAILY 09/26/23 [History] Hx Tetanus, Diphtheria Vaccination/Date Given: Yes Hx Influenza Vaccination/Date Given: Yes (2021) Hx Pneumococcal Vaccination/Date Given: Yes (2019) Immunizations Up to Date: Yes Travel Risk - International Travel Have you traveled outside of the country in past 3 weeks: No - Emerging Infectious Disease Are you exhibiting symptoms associated with any current EIDs: No - Review of Systems Constitutional: No Fever, No Chills Eyes: No Symptoms Ears, Nose, & Throat: No Symptoms Respiratory: No Cough, No Dyspnea Cardiac: Chest Pain, No Edema, No Syncope Abdominal/Gastrointestinal: No Abdominal Pain, No Nausea, No Vomiting, No Diarrhea Genitourinary Symptoms: No Dysuria Musculoskeletal: Back Pain, No Neck Pain Skin: No Rash Neurological: No Dizziness, No Focal Weakness, No Sensory Changes Psychological: No Symptoms Endocrine: No Symptoms Hematologic/Lymphatic: No Symptoms Immunological/Allergic: No Symptoms All Other Systems: Reviewed and Negative - Past Medical History Pertinent Past Medical History: Yes Neurological History: No Pertinent History ENT History: No Pertinent History Cardiac History: High Cholesterol, Hypertension Respiratory History: No Pertinent History Endocrine Medical History: Diabetes Type II Musculoskeletal History: Osteoarthritis GI Medical History: No Pertinent History History: No Pertinent History Psycho-Social History: No Pertinent History Female Reproductive Disorders: No Pertinent History 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 - Past Surgical History Past Surgical History: Yes Neuro Surgical History: No Pertinent History Cardiac: No Pertinent History Respiratory: No Pertinent History Gastrointestinal: Appendectomy Genitourinary: No Pertinent History Musculoskeletal: Orthopedic Surgery Female Surgical History: Hysterectomy Other Surgical History: back, rt wrist - Social History Smoking Status: Never smoker Exposure to second hand smoke: No Drug Use: none Patient Lives Alone: No - Social Determinants of Health Will the patient participate in the screening: Yes Do you worry about a steady place to live?: No Do you have any problems with any of the following?: No known problems In the past 12 months,have you had to go without utilities?: No Transportation Issues: No Has anyone in your support network made you feel unsafe?: No Have you or anyone in your house had to go without enough: No - Physical Exam General Appearance: no apparent distress, alert Eye Exam: PERRL/EOMI, eyes nml inspection Ears, Nose, Throat Exam: normal ENT inspection, moist mucous membranes Neck Exam: normal inspection, non-tender, supple, full range of motion Respiratory Exam: normal breath sounds, lungs clear, No respiratory distress Cardiovascular Exam: regular rate/rhythm, normal heart sounds Gastrointestinal/Abdomen Exam: soft, No tenderness, No mass Back Exam: normal inspection, No CVA tenderness, No vertebral tenderness Extremity Exam: normal inspection, normal range of motion Neurologic Exam: alert, oriented x 3, cooperative, normal mood/affect, sensation nml, No motor deficits Skin Exam: normal color, warm, dry SpO2 Interpretation: borderline oxygenation SpO2: 93 O2 Delivery: Room Air - Course Nursing assessment & vital signs reviewed: Yes EKG Interpreted by Me: Sinus Rhythm, NORMAL AXIS, NORMAL INTERVALS, NORMAL QRS, Non-specific ST Changes - Progress Progress: improved, re-examined Air Movement: good Progress Note: 06/23/24 07:[address] Medley at change of shift and after intro to pt , Hx , and pending labs/studies for final interpretation and disposition. Blood Culture(s) Obtained: No Antibiotics given: No Counseled pt/family regarding: lab results, diagnosis, need for follow-up, rad results Medical Desision Making - Independent Historian Additional History obtained from: Spouse - Discussion of managment Care discussed with:: hospitalist Reviewed:: Test results, Need for additional workup Agreed on:: Treatment plan, need for follow-up - Diagnostic Testing Diagnostic test were ordered, analyzed, and reviewed by me: Yes Radiological Interpretation: Interpreted by me, Reviewed by me, Teleradiologist Report - Risk of complications The pt has a mod risk of morbidity or mortality based on: Need for prescription drug management The pt has a high risk of morbidity or mortality based on: Decision regarding hospitilization or escalation of hosp level of care - Departure Clinical Impression: Chest pain Condition: Stable Critical Care Time: No Referrals: WOOD HARMON DO [Primary Care Provider] - Follow up/PCP as directed Instructions: Chest Pain (DC) Additional Instructions: Call your primary care doctor for follow-up and referral to cardiology. Return immediately if chest pain worsens or returns. <MEDLEYHARPAL TRIPATHI. - Last Filed: 06/23/24 12:04> - Nursing Vital Signs Nursing Vital Signs: Initial Vital Signs Temperature 97.0 F 06/23/24 06:32 Pulse Rate 69 06/23/24 06:32 Respiratory Rate 20 06/23/24 06:32 Blood Pressure 147/58 06/23/24 06:32 O2 Sat by Pulse Oximetry 93 L 06/23/24 06:32 Pain Scale Pain Intensity 0 Ordered Tests: Active Orders 24 hr Category Date Time Status Copy Clerk STAT Care 06/23/24 07:09 Active EKG-ER Only STAT Care 06/23/24 07:08 Active IV Insertion STAT Care 06/23/24 07:08 Active Oxygen-ED Only Nasal Cannula 2 lpm Care 06/23/24 07:25 Active Pulse Oximetry (ED) STAT Care 06/23/24 07:08 Active CHEST 1 VIEW (PORTABLE) Stat Exams 06/23/24 07:08 Completed CHEST WITH CONTRAST [CT] Stat Exams 06/23/24 07:37 Completed CBC W DIFF Stat Lab 06/23/24 06:20 Completed CMP Stat Lab 06/23/24 06:55 Completed D-DIMER QUANTITATIVE Stat Lab 06/23/24 06:55 Completed LIPASE Stat Lab 06/23/24 06:55 Completed Lactic Acid Stat Lab 06/23/24 07:25 Completed NT PRO BNPII Stat Lab 06/23/24 06:55 Completed TROPONIN Q4H Lab 06/23/24 06:55 Completed TROPONIN Q4H Lab 06/23/24 09:08 Completed TROPONIN Q4H Lab 06/23/24 11:05 Completed UA W/RFX UR CULTURE Stat Lab 06/23/24 07:10 Ordered Medication Summary Discontinued Medications Generic Name Dose Route Start Last Admin Trade Name Santiagoq PRN Reason Stop Dose Admin Aspirin 324 mg 06/23/24 07:08 06/23/24 07:15 Aspirin 81 Mg Tab.Chew PO 06/23/24 07:09 324 mg STAT ONE Administration Aspirin Confirm 06/23/24 07:13 Aspirin 81 Mg Tab.Chew Administered 06/23/24 07:14 Dose 324 mg .ROUTE .STK-MED ONE Nitroglycerin 0.4 mg 06/23/24 07:08 06/23/24 07:15 Nitroglycerin 0.4 Mg (Ed) 0.4 Mg Tab.Subl SL 06/23/24 07:09 0.4 mg STAT ONE Administration Nitroglycerin Confirm 06/23/24 07:13 Nitroglycerin 0.4 Mg (Ed) 0.4 Mg Tab.Subl Administered 06/23/24 07:14 Dose 0.4 mg SL .STK-MED ONE Patient was stable throughout stay. I did 3 troponins. They were all not elevated. I discussed the patient's case with the hospitalist. She seemed to think that the patient could go home and have this worked up on an outpatient basis. The patient has a primary care doctor that can order a stress test. Either that or refer to cardiology. Patient is to return if symptoms worsen. On the differential was coronary event, pulmonary embolism, pneumonia, COVID-19. I think the patient's pain was secondary to coronary vascular disease. She is stable at this time.. Her heart risk score was 4 Lab/Rad Data: Laboratory Result Diagrams 06/23/24 06:20 06/23/24 06:55 Laboratory Results 06/23/24 06/23/24 06/23/24 Range/Units 11:05 09:08 07:25 WBC (3.98-10.04) x10^3/uL RBC (3.93-5.22) x10^6/uL Hgb (11.2-15.7) g/dL Hct (34.1-44.9) % MCV (79.4-94.8) fL MCH (25.6-32.2) pg MCHC (32.2-35.5) g/dL RDW (11.7-14.4) % Plt Count (182-369) x10^3/uL MPV (9.4-12.3) fL Gran % (34.0-71.1) % Immature Gran % (Auto) (0.001-0.429) % Nucleat RBC Rel Count (0.00-0.2) % Eos # (Auto) (0.04-0.36) x10^3/uL Immature Gran # (Auto) (0.001-0.031) x10^3u/L Absolute Lymphs (auto) (1.18-3.74) x10^3/uL Absolute Monos (auto) (0.24-0.86) x10^3/uL Absolute Nucleated RBC (0.00-0.012) x10^3u/L Lymphocytes % (19.3-51.7) % Monocytes % (4.7-12.5) % Eosinophils % (0.7-5.8) % Basophils % (0.1-1.2) % Absolute Granulocytes (1.56-6.13) x10^3/uL Basophils # (0.01-0.08) x10^3/uL D-Dimer (0.0-0.50) mg/L Sodium (135-145) mmol/L Potassium (3.5-5.1) mmol/L Chloride (98-107) mmol/L Carbon Dioxide (22-30) mmol/L Anion Gap (5-15) MEQ/L BUN (7-17) mg/dL Creatinine (0.52-1.04) mg/dL Estimated GFR ML/MIN Glucose (74-106) mg/dL Lactic Acid 1.4 (0.4-2.0) Calcium (8.4-10.2) mg/dL Total Bilirubin (0.2-1.3) mg/dL AST (14-36) U/L ALT (0-35) U/L Alkaline Phosphatase (38-126) U/L Troponin I < 0.012 < 0.012 (0.000-0.033) ng/mL NT-Pro-B Natriuret Pep (<300) pg/mL Serum Total Protein (6.3-8.2) g/dL Albumin (3.5-5.0) g/dL Lipase (23-300) U/L 06/23/24 06/23/24 06/23/24 Range/Units 06:55 06:55 06:55 WBC (3.98-10.04) x10^3/uL RBC (3.93-5.22) x10^6/uL Hgb (11.2-15.7) g/dL Hct (34.1-44.9) % MCV (79.4-94.8) fL MCH (25.6-32.2) pg MCHC (32.2-35.5) g/dL RDW (11.7-14.4) % Plt Count (182-369) x10^3/uL MPV (9.4-12.3) fL Gran % (34.0-71.1) % Immature Gran % (Auto) (0.001-0.429) % Nucleat RBC Rel Count (0.00-0.2) % Eos # (Auto) (0.04-0.36) x10^3/uL Immature Gran # (Auto) (0.001-0.031) x10^3u/L Absolute Lymphs (auto) (1.18-3.74) x10^3/uL Absolute Monos (auto) (0.24-0.86) x10^3/uL Absolute Nucleated RBC (0.00-0.012) x10^3u/L Lymphocytes % (19.3-51.7) % Monocytes % (4.7-12.5) % Eosinophils % (0.7-5.8) % Basophils % (0.1-1.2) % Absolute Granulocytes (1.56-6.13) x10^3/uL Basophils # (0.01-0.08) x10^3/uL D-Dimer 0.84 H* (0.0-0.50) mg/L Sodium 140 (135-145) mmol/L Potassium 3.7 (3.5-5.1) mmol/L Chloride 104 (98-107) mmol/L Carbon Dioxide 24 (22-30) mmol/L Anion Gap 15.6 H (5-15) MEQ/L BUN 28 H (7-17) mg/dL Creatinine 0.93 (0.52-1.04) mg/dL Estimated GFR 61.8 ML/MIN Glucose 171 H (74-106) mg/dL Lactic Acid (0.4-2.0) Calcium 9.5 (8.4-10.2) mg/dL Total Bilirubin 0.90 (0.2-1.3) mg/dL AST 76 H (14-36) U/L ALT 38 H (0-35) U/L Alkaline Phosphatase 102 (38-126) U/L Troponin I < 0.012 (0.000-0.033) ng/mL NT-Pro-B Natriuret Pep 218 (<300) pg/mL Serum Total Protein 7.1 (6.3-8.2) g/dL Albumin 4.3 (3.5-5.0) g/dL Lipase 149 (23-300) U/L 06/23/24 Range/Units 06:20 WBC 6.0 (3.98-10.04) x10^3/uL RBC 4.94 (3.93-5.22) x10^6/uL Hgb 14.5 (11.2-15.7) g/dL Hct 44.0 (34.1-44.9) % MCV 89.1 (79.4-94.8) fL MCH 29.4 (25.6-32.2) pg MCHC 33.0 (32.2-35.5) g/dL RDW 14.3 (11.7-14.4) % Plt Count 205 (182-369) x10^3/uL MPV 11.0 (9.4-12.3) fL Gran % 62.0 (34.0-71.1) % Immature Gran % (Auto) 0.7 H (0.001-0.429) % Nucleat RBC Rel Count 0.0 (0.00-0.2) % Eos # (Auto) 0.08 (0.04-0.36) x10^3/uL Immature Gran # (Auto) 0.04 H (0.001-0.031) x10^3u/L Absolute Lymphs (auto) 1.34 (1.18-3.74) x10^3/uL Absolute Monos (auto) 0.78 (0.24-0.86) x10^3/uL Absolute Nucleated RBC 0.00 (0.00-0.012) x10^3u/L Lymphocytes % 22.3 (19.3-51.7) % Monocytes % 13.0 H (4.7-12.5) % Eosinophils % 1.3 (0.7-5.8) % Basophils % 0.7 (0.1-1.2) % Absolute Granulocytes 3.74 (1.56-6.13) x10^3/uL Basophils # 0.04 (0.01-0.08) x10^3/uL D-Dimer (0.0-0.50) mg/L Sodium (135-145) mmol/L Potassium (3.5-5.1) mmol/L Chloride (98-107) mmol/L Carbon Dioxide (22-30) mmol/L Anion Gap (5-15) MEQ/L BUN (7-17) mg/dL Creatinine (0.52-1.04) mg/dL Estimated GFR ML/MIN Glucose (74-106) mg/dL Lactic Acid (0.4-2.0) Calcium (8.4-10.2) mg/dL Total Bilirubin (0.2-1.3) mg/dL AST (14-36) U/L ALT (0-35) U/L Alkaline Phosphatase (38-126) U/L Troponin I (0.000-0.033) ng/mL NT-Pro-B Natriuret Pep (<300) pg/mL Serum Total Protein (6.3-8.2) g/dL Albumin (3.5-5.0) g/dL Lipase (23-300) U/L - Progress Progress: re-examined (Patient was stable having no chest pain) - Departure Departure Disposition: Home
[2024-06-23] MEDS ORDERED: Nitrostat 0.4 MG (ED) SL ONE (07:13)
[2024-06-23] MEDS ORDERED: BABY ASPIRIN 81 MG CHEW ONE (07:13)
[2024-06-23] MEDS: Nitrostat 0.4 MG (ED) SL ONE (07:15)
[2024-06-23] MEDS: BABY ASPIRIN 81 MG CHEW PO ONE (07:15)
[2024-06-23 07:17] LABS: Absolute Neutrophil Ct (ANC) 3.74 x10^3/uL (1.56-6.13); BASOPHIL % 0.7 % (0.1-1.2); Basophil (Absolute #) 0.04 x10^3/uL (0.01-0.08); Eosinophil % 1.3 % (0.7-5.8); Eosinophil (Absolute #) 0.08 x10^3/uL (0.04-0.36); Hemoglobin 14.5 g/dL (11.2-15.7); IMMATURE GRAN # 0.04 x10^3u/L (0.001-0.031); IMMATURE GRAN % 0.7 % (0.001-0.429); Lymphocyte (Absolute #) 1.34 x10^3/uL (1.18-3.74); Lymphocytes % 22.3 % (19.3-51.7); Mean Cell Volume 89.1 fL (79.4-94.8); Mean Corpuscular Hemoglobin 29.4 pg (25.6-32.2); Monocyte (Absolute #) 0.78 x10^3/uL (0.24-0.86); Platelet Count 205 x10^3/uL (182-369); Red Blood Count 4.94 x10^6/uL (3.93-5.22); Red Cell Distribution Width 14.3 % (11.7-14.4)
[2024-06-23 07:41] LABS: ALBUMIN 4.3 g/dL (3.5-5.0); ANION GAP 15.6 MEQ/L (5-15); BILIRUBIN,TOTAL 0.9 mg/dL (0.2-1.3); Calcium 9.5 mg/dL (8.4-10.2); Creatinine 1 0.93 mg/dL (0.52-1.04); EST GLOMERULAR FILTRATION RATE 61.8 ML/MIN; Potassium 3.7 mmol/L (3.5-5.1); Total Protein 7.1 g/dL (6.3-8.2)
--- NOTE | 2024-06-23 08:36 | XRAY ---
Indication: Chest pain. Comparison: September 26, 2023 Portable chest remains inflated and clear. Heart not enlarged. Bony thorax intact again with osteopenia, degenerative changes, and incompletely visualized lumbar fusion hardware. No new/acute findings.
--- NOTE | 2024-06-23 09:59 | XRAY ---
Indication: Chest pain. Dyspnea. Elevated d-dimer. Multiple contiguous axial images obtained through the chest using 80 cc Isovue 370 contrast and PE protocol. Comparison: September 26, 2023 Good opacification pulmonary arteries to include the lobar and segmental branches. No pulmonary embolus. Heart not enlarged. Aorta again mildly arteriosclerotic without aneurysm/dissection. Stable tiny left suprahilar calcified nodes. No pathologic mediastinal/hilar lymphadenopathy. Lungs the main clear again with minimal dependent atelectasis. Bony thorax intact again with osteopenia, mild degenerative changes, remote T3 superior endplate fracture, superior L1 Schmorl node, and incompletely visualized lumbar fusion hardware. Limited upper abdomen demonstrates stable small left upper renal cyst and tiny splenic calcified granulomas. Impression: 1. Continued negative pulmonary embolus. No new/acute cardiopulmonary abnormalities. 2. Again chronic findings including arteriosclerotic disease, chronic bony findings, left renal cyst, and old granulomatous disease.
[2024-06-23 10:01] VITALS: RESP 16
[2024-06-23 12:09] VITALS: BP 117/59; PULSE 63; O2SAT 90
== END 2024-06-23 12:20 | disposition home or self-care (01) ==
LOC: ED 06:31
DX: R07.9 Chest pain, unspecified (principal); E78.5 Hyperlipidemia, unspecified; I10 Essential (primary) hypertension; E11.9 Type 2 diabetes mellitus without complications; Z79.899 Other long term (current) drug therapy
CPT/HCPCS: 36000; 36415; 71045; 71260; 80053; 83605; 83690; 83880; 84484; 85025; 85379; 93005; 93041; 94760; 99284; A9270-GY

== ENCOUNTER 2024-07-02 06:48 | Day surgery (SDC) | payer MEDICARE ==
[2024-07-02] MEDS ORDERED: Sodium Chloride 0.9(Preservative Free) 10 ML IJ ONE (06:49)
[2024-07-02] MEDS ORDERED: Decadron 4 MG INJ IV ONE (06:49)
[2024-07-02] MEDS ORDERED: LIDOCAINE HCL 1% AMPUL 5 ML IJ ONE (06:49)
[2024-07-02] MEDS ORDERED: DIPRIVAN 200 MG/20 ML IV ONE (09:19)
[2024-07-02] MEDS ORDERED: Ephedrine Sulfate 50 MG/ML ONE (09:34)
--- NOTE | 2024-07-02 12:23 | XRAY ---
Indication: Right L5-S2 transforaminal TRISTAN. Intraoperative fluoroscopy provided for 33 seconds. 9 digital spot image submitted for interpretation demonstrates posterior needle tips projecting over the expected right L5 and S1 nerve roots. Small amount of contrast injected for needle tip placement. Correlate with intraoperative findings/report. Incidental incompletely visualized mid lumbar fusion hardware.
--- NOTE | 2024-07-02 12:23 | XRAY ---
Indication: Right piriformis injection. Intraoperative fluoroscopy provided for 6 seconds. Single digital spot image submitted for interpretation demonstrates posterior needle tip projecting over right piriformis. Small amount of contrast injected for needle tip placement. Correlate with intraoperative findings/report.
--- NOTE | 2024-07-02 12:36 | XRAY ---
6 seconds of fluoroscopy was used in surgery for a right piriformis injection.
--- NOTE | 2024-07-02 12:37 | XRAY ---
33 seconds of fluoroscopy was used in surgery for a right L5-S2 transforaminal TRISTAN.
== END 2024-07-02 09:55 | disposition home or self-care (01) ==
LOC: SDC-PAIN 06:48
PROVIDERS: ATTEND Psychiatry & Neurology Pain Medicine
DX: M54.16 Radiculopathy, lumbar region (principal); M79.18 Myalgia, other site
CPT/HCPCS: 20552; 64483; 64484; 72100; 72170; 77002; 77003; 82947; J1100; J2704; Q9966

== ENCOUNTER 2025-06-15 10:18 | Day surgery (SDC) | payer MEDICARE ==
--- NOTE | 2025-06-15 07:25 | HP ---
THIS REPORT WAS AMENDED ON 06/16/2025. HISTORY OF PRESENT ILLNESS: An 84-year-old female apparently was in [place], had an ERCP and some stone removal. Clearance of the duct at that point. Patient had recent ERCP. She is not having pain right at the moment. PAST MEDICAL HISTORY: Again, she had choledocholithiasis, cholelithiasis. The patient underwent ERCP of common duct. She had hypertension, osteoarthritis, hyperlipidemia, history of diarrhea and heartburn in the past. MEDICATIONS: Vitamin D2, cyanocobalamin, Metamucil, hydrochlorothiazide, calcium 1200, she has been on Farxiga, citalopram, donepezil meloxicam, amantadine, amlodipine, simvastatin, losartan. ALLERGIES: Codeine and Darvon. PAST SURGICAL HISTORY: Appendectomy, she had wrist fracture and back surgery in the past, had hysterectomy in the past, had an ERCP with stone removal from the common bile duct. SOCIAL HISTORY: Drinks some alcohol. Denies smoking. FAMILY HISTORY: Negative in regard to this problem. REVIEW OF SYSTEMS: Twelve systems reviewed. Pertinent for medical problems as noted above per admission assessment, negative as noted above. No abdominal pain currently. PHYSICAL EXAMINATION: GENERAL: No acute distress. VITAL SIGNS: Height 4 feet 11 inches. Average build. HEENT: Sclerae nonicteric. NECK: No JVD. CHEST: Equal excursion. CARDIOVASCULAR: Regular rate and rhythm. ABDOMEN: Soft. SKIN: Dry. EXTREMITIES: No cyanosis or edema. NEUROLOGIC: Alert and oriented. Moving all extremities symmetrically. PSYCHIATRIC: Appropriate mood and affect. IMPRESSION: Acute exacerbation of chronic cholecystitis, cholelithiasis, and ERCP with clearance of a common bile duct stone. Recommend cholecystectomy at this point. She is interested to reduce future attacks. Risks were explained in detail, but not limited to, bleeding; infection; risk of bowel injury or perforation; risk of retained stone or sludge possibly requiring ERCP; risk of bile duct injury possibly need for open procedure; risk of anesthesia, DVT, PE, pneumonia; risks of aches, pains, bloating, constipation, loose stools possibly chronic in nature; possibly no improvement in preoperative symptoms; possibly requiring further workup or studies, endoscopy or other studies or referrals. She is agreeable. We will proceed with laparoscopic cholecystectomy, possible open, under general anesthetic as an outpatient. Otherwise, continue medications for hypertension and hyperlipidemia.
[2025-06-15] MEDS ORDERED: CEFAZOLIN SODIUM ONE (10:39)
[2025-06-15] MEDS: FLAGYL 500 MG IVPB 500 MG/100 ML BAG IV ONE (10:48)
[2025-06-15 11:07] VITALS: RESP 16
[2025-06-15 11:15] LABS: Calcium 9.5 mg/dL (8.4-10.2); Carbon Dioxide 28.0 mmol/L (22-30); Creatinine 1 0.74 mg/dL (0.52-1.04); EST GLOMERULAR FILTRATION RATE 80.7 ML/MIN; Glucose 124.0 mg/dL (74-106); Potassium 4.4 mmol/L (3.5-5.1)
[2025-06-15] MEDS ORDERED: Sensorcaine 0.25% 10 ML ONE (12:06)
[2025-06-15] MEDS ORDERED: Amidate 20 MG/10 ML IV ONE (12:10)
[2025-06-15] MEDS ORDERED: propofoL IV ONE (12:10)
[2025-06-15] MEDS ORDERED: ROCURONIUM BROMIDE IV ONE (12:10)
[2025-06-15] MEDS ORDERED: Xylocaine-Mpf 2% 5 Ml Vial ONE (12:10)
[2025-06-15] MEDS ORDERED: SUBLIMAZE 100 MCG/2 ML ONE ×2 (12:11→13:33)
[2025-06-15] MEDS ORDERED: ROBINUL ONE (12:13)
[2025-06-15] MEDS ORDERED: Zofran 4 MG/2 ML VIAL ONE (12:25)
[2025-06-15] MEDS ORDERED: ATROPINE SULFATE 1MG ONE (12:30)
[2025-06-15] MEDS ORDERED: BREVIBLOC 100 MG/10 ML IV ONE (12:34)
[2025-06-15] MEDS ORDERED: APRESOLINE 20 MG/ML INJ ONE (12:46)
[2025-06-15] MEDS ORDERED: BRIDION 200MG/2ML IV ONE (12:47)
[2025-06-15] MEDS ORDERED: Lactated Ringers 1,000 ML IV ONE (12:55)
[2025-06-15] MEDS ORDERED: DILAUDID 0.5 MG/0.5 ML SYRINGE ONE (13:49)
[2025-06-15 15:46] VITALS: BP 103/55; PULSE 82; TEMP 97.1; O2SAT 93
--- NOTE | 2025-06-17 12:25 | OP ---
SURGERY DATE/TIME: 06/15/2025 [id number] PREOPERATIVE DIAGNOSES: 1) Acute exacerbation of chronic cholecystitis. 2) Cholelithiasis. 3) Prior history of endoscopic retrograde cholangiopancreatography with removal of common bile duct stone. POSTOPERATIVE DIAGNOSES: 1) Acute exacerbation of chronic cholecystitis. 2) Cholelithiasis. 3) Prior history of endoscopic retrograde cholangiopancreatography with removal of common bile duct stone. PROCEDURE: Laparoscopic cholecystectomy. SURGEON: Jasmeet Harrison MD ANESTHESIA: General. SMOKING PIPE COATER: MARJ Ramirez ESTIMATED BLOOD LOSS: Less than 25 mL. INDICATIONS: As above. Consent was obtained. DESCRIPTION OF PROCEDURE AND FINDINGS: The patient was taken to the operating room. General anesthesia was induced. Prepped and draped in the usual sterile fashion. After official time-out, no disagreement in planned procedure, transverse incision was made at the supraumbilical area. Fascia grasped and pulled upward. Veress needle inserted. Tested with saline. Pneumoperitoneum accomplished from an opening pressure of 0 to 15. Two 5 mm right upper quadrant ports and 11 mm epigastric port, which was later switched to 12 mm epigastric port, were carefully placed. There was no evidence of any intra-abdominal injury secondary to trocar insertion. The gallbladder had adhesions on it. It was quite chronically inflamed. It was dissected from posterolateral to anterior fashion. Had quite a bit of reaction around the cystic duct/infundibular area. Slowly, carefully this was well skeletonized until the critical view was obtained both anteriorly and posteriorly. Because of all the inflammation, it was elected to put the 12 port up in the epigastrium. We placed the 12 clip. The cystic duct/cystic artery was clipped x3 and divided in the usual fashion. Gallbladder was carefully dissected free from its dense attachment to gallbladder bed. It was quite vascular and required clipping additional oozing side branches off the cystic artery and vein directly on the gallbladder wall. Just prior to releasing it from its final attachments to the anterior liver, the liver bed reinspected. There had been some scant oozing in the anterior edge of the liver. This was controlled with pinpoint cautery. Clips were noted to be in place in the cystic duct and cystic artery stumps. No signs of any active bleeding or bile leakage from those clip sites. Gallbladder was removed from the final attachment to the anterior edge of liver, placed in provided sac, and then pulled free. A 12 fascial defect closed with puncture closure device and #1 Vicryl. Copious amount of irrigation accomplished lateral to the liver and subhepatic space until clean. Given her age, a small piece of Surgicel left in the subhepatic space. Had adequate hemostasis. Clips were noted to be in place in the cystic duct/cystic artery stumps. It was felt there was no benefit from drain placement. Pneumoperitoneum decompressed. The 12 fascial defect had been closed with puncture device and #1 Vicryl. Wound was irrigated out. Skin incisions closed with 4-0 Vicryl. Steri-Strips and sterile dressing applied. Patient tolerated procedure well. There were no immediate complications. Findings discussed with family out in the waiting area.
== END 2025-06-15 15:56 | disposition home or self-care (01) ==
LOC: SDC 10:18
PROVIDERS: ATTEND Surgery
DX: K80.10 Calculus of gallbladder with chronic cholecystitis without obstruction (principal); Z86.79 Personal history of other diseases of the circulatory system; I10 Essential (primary) hypertension; E78.5 Hyperlipidemia, unspecified